=== PATIENT | female | born 1945 | race Caucasian/White ===

== ENCOUNTER 2019-07-28 13:09 | Emergency (ER) | payer OTHER ==
[~2019-07-28] VITALS: Ht 180.3 cm; Wt 102.1 kg
[2019-07-28 13:09] VITALS: BP_SYST 127
[2019-07-28] MEDS ORDERED: CARV12.548 PO (13:24)
[2019-07-28] MEDS ORDERED: ASPI-524 PO (13:24)
[2019-07-28] MEDS ORDERED: POTA10CA68 PO (13:24)
[2019-07-28] MEDS ORDERED: METH5TAB70 PO (13:24)
[2019-07-28] MEDS ORDERED: GABA-529 PO (13:24)
[2019-07-28] MEDS ORDERED: CYAN250010 PO (13:24)
[2019-07-28] MEDS ORDERED: HYDR-4274 PO (13:24)
[2019-07-28] MEDS ORDERED: SIMV20TA2 PO (13:24)
[2019-07-28] MEDS ORDERED: TRIA1CAP2 PO (13:24)
[2019-07-28] MEDS ORDERED: CALC600T2 PO (13:24)
[2019-07-28] MEDS ORDERED: MULT-1159 PO (13:24)
[2019-07-28] MEDS ORDERED: BACITRACIN 1 GM OINT TP ONE (14:00)
[2019-07-28] MEDS ORDERED: LIDOCAINE 1% 10 MG/ML, 20 ML MDV SUBCUT ONE (14:00)
[2019-07-28] MEDS ORDERED: DIPH-TET-PERTUS Vaccine 0.5 ML VIAL (ADACEL) I.M. ONE (14:00)
[2019-07-28 14:57] VITALS: BP_SYST 127
== END 2019-07-28 14:57 | disposition home or self-care (01) ==
LOC: SED 13:09
DX: S81.812A Laceration without foreign body, left lower leg, initial encounter (principal); Z79.899 Other long term (current) drug therapy; Z79.82 Long term (current) use of aspirin; W22.8XXA Striking against or struck by other objects, initial encounter; Y93.89 Activity, other specified; Y92.89 Other specified places as the place of occurrence of the external cause; Y99.8 Other external cause status
CPT/HCPCS: 12001; 90471; 90715; 99283; J2001

== ENCOUNTER 2019-08-08 11:18 | Inpatient (IN) | payer OTHER ==
[~2019-08-08] VITALS: Ht 180.3 cm; Wt 88.0 kg
[~2019-08-08 11:18] MED LIST: ASPI-524 PO; CALC600T2 PO; CARV12.548 PO; CYAN250010 PO; GABA-529 PO; HYDR-4274 PO; METH5TAB70 PO; MULT-1159 PO; POTA10CA68 PO; SIMV20TA2 PO; TRIA1CAP2 PO
[2019-08-08 11:25] VITALS: BP_SYST 114
[2019-08-08] MEDS ORDERED: DILTIAZEM HCL 25 MG/5 ML VIAL IVP ONE ×3 (12:00→18:15)
[2019-08-08 12:19] LABS: BASOPHILS # (AUTO) 0.1 K/uL (0.0-0.2); BASOPHILS % (AUTO) 0.5 % (0.0-2.0); EOSINOPHILS % (AUTO) 0.2 % (0.0-4.0); HEMATOCRIT 37.1 % (36-48); HEMOGLOBIN 12.1 g/dL (12.0-16.0); LYMPHOCYTES # (AUTO) 1.1 K/uL (1.0-5.5); LYMPHOCYTES % (AUTO) 9.6 % (20.5-51.5); MEAN CORPUSCULAR HEMOGLOBIN 29 pg (27-31); MEAN CORPUSCULAR HGB CONC 33 % (32-36); MEAN CORPUSCULAR VOLUME 89 fL (79.0-98.0); MONOCYTES # (AUTO) 0.8 K/uL (0.0-1.0); MONOCYTES % (AUTO) 6.7 % (1.7-9.3); NEUTROPHILS # (AUTO) 9.4 K/uL (1.8-7.7); PLATELET COUNT (AUTO) 567 K/uL (130-430); RED BLOOD CELL COUNT(AUTO) 4.18 MIL/uL (4.2-6.2); WHITE BLOOD COUNT (AUTO) 11.4 K/uL (4.8-10.8)
[2019-08-08 12:55] LABS: ALANINE AMINOTRANSFERASE 18 U/L (12-78); ALBUMIN 3.3 g/dL (3.4-4.8); ASPARTATE AMINOTRANSFERASE 14 U/L (10-37); FREE T4 (FREE THYROXINE) 1.8 ng/dL (0.6-1.6); THYROID STIMULATING HORMONE 0.13 uIu/mL (0.34-4.82); TOTAL BILIRUBIN 0.5 mg/dL (0.0-1.0)
[2019-08-08 13:04] LABS: ANION GAP 16 (5-15); CHLORIDE 89 mmol/L (98-107); POTASSIUM 3.2 mmol/L (3.5-5.1); SODIUM SERUM 129 mmol/L (136-145)
[2019-08-08 13:05] LABS: GLUCOSE 136 mg/dL (70-99)
[2019-08-08 13:43] LABS: CALCIUM 8.9 mg/dL (8.4-11.0); UREA NITROGEN, BLOOD 18 mg/dL (8-21)
[2019-08-08 13:44] LABS: CREATININE 1.28 mg/dL (0.55-1.30)
[2019-08-08 13:45] LABS: BILIRUBIN,URINE 2+ (NEGATIVE); BLOOD, URINE 3+ (NEGATIVE); CLARITY/URINE SL CLOUDY (CLEAR); COLOR,URINE YELLOW (YELLOW); GLUCOSE,URINE NEGATIVE (NEGATIVE); KETONES,URINE 1+ (NEGATIVE); LEUKOCYTE ESTERASE ,URINE 2+ (NEGATIVE); NITRITE, URINE NEGATIVE (NEGATIVE); PROTEIN URINE 1+ (NEGATIVE)
[2019-08-08 13:53] LABS: BACTERIA,URINE MODERATE /HPF (None Seen)
[2019-08-08] MEDS ORDERED: DILTIAZEM HCL 120 MG CAP.SR.24H PO ONE (14:15)
[2019-08-08] MEDS ORDERED: LEVOFLOXACIN 500 MG/D5W 100 ML IV ONE (14:15)
[2019-08-08] MEDS ORDERED: ASPIRIN 81 MG TAB.CHEW PO ONE (14:30)
[2019-08-08] MEDS ORDERED: DILTIAZEM HCL 60 MG TABLET ONE (15:27)
[2019-08-08] MEDS ORDERED: MORPHINE SULFATE 10 MG/ML VIAL IVP PRN (16:45)
[2019-08-08] MEDS ORDERED: LORazepam 2 MG/ML VIAL IVP PRN (16:45)
[2019-08-08] MEDS ORDERED: DOCUSATE SODIUM 100 MG CAPSULE PO PRN (16:45)
[2019-08-08] MEDS ORDERED: ONDANSETRON HCL 4 MG/2 ML VIAL IVP PRN (16:45)
[2019-08-08] MEDS ORDERED: ZOLPIDEM TARTRATE 5 MG TABLET PO PRN (16:45)
[2019-08-08] MEDS ORDERED: MUPIROCIN 2% TOPICAL OINTMENT 22 GM NS PRN (16:45)
[2019-08-08] MEDS ORDERED: MAGNESIUM SULFATE 50 ML IV PRN (16:45)
[2019-08-08 20:28] VITALS: BP_SYST 98
[2019-08-08] MEDS: SIMVASTATIN 20 MG TABLET PO SCH (21:39)
[2019-08-08] MEDS: GABAPENTIN 100 MG CAPSULE PO SCH (21:39)
[2019-08-08] MEDS: NACL 0.9% 1,000 ML IV SCH (21:41)
[2019-08-08] MEDS: cefTRIAXone 1 GM in D5W 50 ML IV SCH (21:41)
[2019-08-08] MEDS: HEPARIN SODIUM,PORCINE 5000 UNITS/ML VIAL SUBCUT SCH (21:57)
[2019-08-09] VITALS (7 sets, daily range): BP systolic 77–121
[2019-08-09] MEDS ORDERED: AMIODARONE HCL 200 MG TABLET PO ONE (01:00)
[2019-08-09] MEDS: CARVEDILOL 12.5 MG TABLET (COREG) PO SCH ×3 (01:07→20:36)
[2019-08-09] MEDS ORDERED: NS 250 ML IV ONE (02:15)
[2019-08-09 06:12] LABS: ANION GAP 7 (5-15); CALCIUM 7.9 mg/dL (8.4-11.0); CHLORIDE 94 mmol/L (98-107); CREATININE 0.96 mg/dL (0.55-1.30); GLUCOSE 122 mg/dL (70-99); POTASSIUM 3.2 mmol/L (3.5-5.1); SODIUM SERUM 131 mmol/L (136-145); UREA NITROGEN, BLOOD 20 mg/dL (8-21)
[2019-08-09 06:23] LABS: BASOPHILS % (AUTO) 0.5 % (0.0-2.0); EOSINOPHILS % (AUTO) 0.2 % (0.0-4.0); HEMATOCRIT 31.1 % (36-48); HEMOGLOBIN 10.4 g/dL (12.0-16.0); LYMPHOCYTES # (AUTO) 1.5 K/uL (1.0-5.5); MEAN CORPUSCULAR HEMOGLOBIN 29 pg (27-31); MEAN CORPUSCULAR HGB CONC 33 % (32-36); MEAN CORPUSCULAR VOLUME 88 fL (79.0-98.0); MONOCYTES % (AUTO) 10.8 % (1.7-9.3); NEUTROPHILS # (AUTO) 6.3 K/uL (1.8-7.7); NEUTROPHILS % (AUTO) 71.5 % (40.0-70.0); PLATELET COUNT (AUTO) 414 K/uL (130-430); RED BLOOD CELL COUNT(AUTO) 3.53 MIL/uL (4.2-6.2); RED CELL DISTRIBUTION WIDTH 13.8 % (9.0-15.0); WHITE BLOOD COUNT (AUTO) 8.8 K/uL (4.8-10.8)
[2019-08-09] MEDS: POTASSIUM CHLORIDE 20 MEQ TAB.PRT.SR PO PRN ×2 (06:51→22:30)
[2019-08-09] MEDS ORDERED: TRIAMTERENE/HYDROCHLOROTHIAZID 1 CAP CAPSULE (DYAZIDE37.5/25) PO SCH (09:00)
[2019-08-09] MEDS: GABAPENTIN 100 MG CAPSULE PO SCH ×2 (09:17→20:36)
[2019-08-09] MEDS: ASPIRIN 81 MG TAB.CHEW PO SCH (09:18)
[2019-08-09] MEDS: HEPARIN SODIUM,PORCINE 5000 UNITS/ML VIAL SUBCUT SCH (09:22)
[2019-08-09] MEDS: MORPHINE SULFATE 10 MG/ML VIAL IVP PRN ×2 (09:27→14:59)
[2019-08-09] MEDS ORDERED: APIXABAN 2.5 MG TABLET PO ONE (10:00)
[2019-08-09] MEDS: METHIMAZOLE 5 MG TABLET PO SCH (12:20)
[2019-08-09] MEDS: NACL 0.9% 1,000 ML IV SCH ×2 (12:32→16:17)
[2019-08-09] MEDS: cefTRIAXone 1 GM in D5W 50 ML IV SCH (20:35)
[2019-08-09] MEDS: SIMVASTATIN 20 MG TABLET PO SCH (20:36)
[2019-08-09] MEDS: APIXABAN 2.5 MG TABLET PO SCH (20:37)
[2019-08-09] MEDS: ACETAMINOPHEN 325 MG TABLET PO PRN (22:34)
[2019-08-10] MEDS: NACL 0.9% 1,000 ML IV SCH ×4 (00:17→20:51)
[2019-08-10 00:50] VITALS: BP_SYST 100
[2019-08-10] MEDS: ACETAMINOPHEN 325 MG TABLET PO PRN ×4 (03:33→20:54)
[2019-08-10 04:00] VITALS: BP_SYST 104
[2019-08-10 07:35] LABS: ALANINE AMINOTRANSFERASE 16 U/L (12-78); ALBUMIN 2.8 g/dL (3.4-4.8); ANION GAP 8 (5-15); ASPARTATE AMINOTRANSFERASE 18 U/L (10-37); CALCIUM 8.3 mg/dL (8.4-11.0); CHLORIDE 96 mmol/L (98-107); CREATININE 0.82 mg/dL (0.55-1.30); GLUCOSE 116 mg/dL (70-99); SODIUM SERUM 131 mmol/L (136-145); TOTAL BILIRUBIN 0.3 mg/dL (0.0-1.0); UREA NITROGEN, BLOOD 15 mg/dL (8-21)
[2019-08-10 07:40] VITALS: BP_SYST 126
[2019-08-10 08:06] LABS: CHOLESTEROL 147 mg/dL (<200); HDL CHOLESTEROL 40 mg/dL (>55); LDL CHOLESTEROL 80 mg/dL (<100); TRIGLYCERIDES 116 mg/dL (30-150)
[2019-08-10 08:09] LABS: BASOPHILS % (AUTO) 0.6 % (0.0-2.0); EOSINOPHILS # (AUTO) 0.1 K/uL (0.0-0.4); EOSINOPHILS % (AUTO) 0.9 % (0.0-4.0); HEMATOCRIT 31.8 % (36-48); HEMOGLOBIN 10.7 g/dL (12.0-16.0); LYMPHOCYTES # (AUTO) 1.9 K/uL (1.0-5.5); LYMPHOCYTES % (AUTO) 26.9 % (20.5-51.5); MEAN CORPUSCULAR HEMOGLOBIN 30 pg (27-31); MEAN CORPUSCULAR HGB CONC 34 % (32-36); MEAN CORPUSCULAR VOLUME 89 fL (79.0-98.0); MONOCYTES # (AUTO) 0.7 K/uL (0.0-1.0); MONOCYTES % (AUTO) 9.9 % (1.7-9.3); NEUTROPHILS # (AUTO) 4.4 K/uL (1.8-7.7); NEUTROPHILS % (AUTO) 61.7 % (40.0-70.0); PLATELET COUNT (AUTO) 396 K/uL (130-430); RED CELL DISTRIBUTION WIDTH 13.7 % (9.0-15.0); WHITE BLOOD COUNT (AUTO) 7.2 K/uL (4.8-10.8)
[2019-08-10] MEDS: METHIMAZOLE 5 MG TABLET PO SCH (08:54)
[2019-08-10] MEDS: ASPIRIN 81 MG TAB.CHEW PO SCH (08:55)
[2019-08-10] MEDS: GABAPENTIN 100 MG CAPSULE PO SCH ×2 (08:55→20:54)
[2019-08-10] MEDS: CARVEDILOL 12.5 MG TABLET (COREG) PO SCH ×2 (08:58→20:53)
[2019-08-10] MEDS: APIXABAN 2.5 MG TABLET PO SCH ×2 (09:25→20:58)
[2019-08-10 12:00] VITALS: BP_SYST 109
[2019-08-10 16:20] VITALS: BP_SYST 122
[2019-08-10] MEDS ORDERED: SUCRALFATE 1 GM TABLET ONE (18:24)
[2019-08-10 20:00] VITALS: BP_SYST 121
[2019-08-10] MEDS: cefTRIAXone 1 GM in D5W 50 ML IV SCH (20:51)
[2019-08-10] MEDS: SIMVASTATIN 20 MG TABLET PO SCH (20:54)
[2019-08-11 01:31] VITALS: BP_SYST 130
[2019-08-11 04:00] VITALS: BP_SYST 128
[2019-08-11 06:57] LABS: BASOPHILS # (AUTO) 0.1 K/uL (0.0-0.2); EOSINOPHILS # (AUTO) 0.2 K/uL (0.0-0.4); EOSINOPHILS % (AUTO) 3.2 % (0.0-4.0); HEMATOCRIT 30.5 % (36-48); LYMPHOCYTES # (AUTO) 1.7 K/uL (1.0-5.5); LYMPHOCYTES % (AUTO) 25.1 % (20.5-51.5); MEAN CORPUSCULAR HEMOGLOBIN 29 pg (27-31); MEAN CORPUSCULAR HGB CONC 33 % (32-36); MEAN CORPUSCULAR VOLUME 89 fL (79.0-98.0); MONOCYTES # (AUTO) 0.8 K/uL (0.0-1.0); MONOCYTES % (AUTO) 11.3 % (1.7-9.3); NEUTROPHILS # (AUTO) 3.9 K/uL (1.8-7.7); NEUTROPHILS % (AUTO) 59.4 % (40.0-70.0); PLATELET COUNT (AUTO) 361 K/uL (130-430); RED BLOOD CELL COUNT(AUTO) 3.43 MIL/uL (4.2-6.2); RED CELL DISTRIBUTION WIDTH 13.9 % (9.0-15.0); WHITE BLOOD COUNT (AUTO) 6.6 K/uL (4.8-10.8)
[2019-08-11 07:19] LABS: ANION GAP 5 (5-15); CHLORIDE 101 mmol/L (98-107); CREATININE 0.92 mg/dL (0.55-1.30); GLUCOSE 108 mg/dL (70-99); POTASSIUM 3.9 mmol/L (3.5-5.1); SODIUM SERUM 136 mmol/L (136-145); UREA NITROGEN, BLOOD 11 mg/dL (8-21)
[2019-08-11] MEDS ORDERED: CARV25TA55 PO (09:01)
[2019-08-11] MEDS ORDERED: APIX5TAB PO (09:01)
[2019-08-11] MEDS: ASPIRIN 81 MG TAB.CHEW PO SCH (09:03)
[2019-08-11] MEDS: CARVEDILOL 12.5 MG TABLET (COREG) PO SCH (09:04)
[2019-08-11] MEDS: GABAPENTIN 100 MG CAPSULE PO SCH (09:11)
[2019-08-11] MEDS: METHIMAZOLE 5 MG TABLET PO SCH (09:25)
[2019-08-11] MEDS: APIXABAN 2.5 MG TABLET PO SCH (09:25)
[2019-08-11 10:19] VITALS: BP_SYST 144
[2019-08-11 11:40] VITALS: BP_SYST 114
== END 2019-08-11 11:31 | disposition home or self-care (01) | DRG 690 ==
LOC: SED 11:18 → EEVIPCON 11:18 → STU 14:17
PROVIDERS: ADMIT General Practice; ATTEND General Practice
DX: N39.0 Urinary tract infection, site not specified (principal); N17.9 Acute kidney failure, unspecified; E87.1 Hypo-osmolality and hyponatremia; E87.3 Alkalosis; I48.20 Chronic atrial fibrillation, unspecified; E87.6 Hypokalemia; B96.20 Unspecified Escherichia coli [E. coli] as the cause of diseases classified elsewhere; E03.9 Hypothyroidism, unspecified; E05.90 Thyrotoxicosis, unspecified without thyrotoxic crisis or storm; E78.5 Hyperlipidemia, unspecified; E86.0 Dehydration; G89.4 Chronic pain syndrome; I10 Essential (primary) hypertension; Z79.899 Other long term (current) drug therapy; Z79.82 Long term (current) use of aspirin
CPT/HCPCS: 36415; 36600; 71045; 80048; 80053; 80061; 81000-TC; 82728; 82803-TC; 83036; 83605; 83735-TC; 83880; 84439; 84443-TC; 84484; 85025; 86140; 87040-TC; 87081; 87086; 87186-TC; 93005; 93306; 96365; 96375; 96376; 99285; G0378; J0696; J1644; J1956; J2270; J3490; J7030; J7050; J7060

== ENCOUNTER 2022-09-11 08:33 | Inpatient (IN) | payer OTHER ==
[~2022-09-11] VITALS: Ht 180.3 cm; Wt 85.7 kg
[~2022-09-11 08:33] MED LIST changes: +APIX5TAB PO; -ASPI-524 PO; -CARV12.548 PO; +CARV25TA55 PO; +SIMV-343 PO; -SIMV20TA2 PO; -TRIA1CAP2 PO
[2022-09-11 08:37] VITALS: BP_SYST 117
[2022-09-11] MEDS ORDERED: METOPROLOL TARTRATE 5 MG/5 ML VIAL IVP ONE ×3 (08:45→09:45)
[2022-09-11] MEDS ORDERED: METOPROLOL SUCCINATE 25 MG TAB.SR.24H (TOPROL XL) PO ONE (09:15)
[2022-09-11] MEDS ORDERED: METOPROLOL SUCCINATE 25 MG TAB.SR.24H (TOPROL XL) PO SCH (09:15)
[2022-09-11] MEDS ORDERED: CARVEDILOL 6.25 MG TABLET (COREG) PO ONE (09:15)
[2022-09-11 09:23] LABS: BASOPHILS # (AUTO) 0.1 K/uL (0.0-0.2); BASOPHILS % (AUTO) 1.1 % (0.0-2.0); EOSINOPHILS # (AUTO) 0.3 K/uL (0.0-0.4); EOSINOPHILS % (AUTO) 3.7 % (0.0-4.0); HEMATOCRIT 30.3 % (36-48); HEMOGLOBIN 9.6 g/dL (12.0-16.0); LYMPHOCYTES # (AUTO) 2.1 K/uL (1.0-5.5); MEAN CORPUSCULAR HEMOGLOBIN 25 pg (27-31); MEAN CORPUSCULAR HGB CONC 32 % (32-36); MEAN CORPUSCULAR VOLUME 79 fL (79.0-98.0); MONOCYTES # (AUTO) 0.6 K/uL (0.0-1.0); MONOCYTES % (AUTO) 7.5 % (1.7-9.3); NEUTROPHILS # (AUTO) 4.8 K/uL (1.8-7.7); NEUTROPHILS % (AUTO) 60.7 % (40.0-70.0); PLATELET COUNT (AUTO) 268 K/uL (130-430); RED BLOOD CELL COUNT(AUTO) 3.86 MIL/uL (4.2-6.2); RED CELL DISTRIBUTION WIDTH 18.5 % (9.0-15.0); WHITE BLOOD COUNT (AUTO) 7.9 K/uL (4.8-10.8)
[2022-09-11] MEDS ORDERED: METOPROLOL TARTRATE 25 MG TABLET ONE (09:25)
[2022-09-11 09:37] LABS: ANION GAP 10 (5-15); CALCIUM 8.2 mg/dL (8.4-11.0); CHLORIDE 107 mmol/L (98-107); CREATININE 0.98 mg/dL (0.55-1.30); GLUCOSE 118 mg/dL (70-99); UREA NITROGEN, BLOOD 50 mg/dL (8-21)
[2022-09-11 09:39] LABS: INR 1.2 (0.8-1.2); PROTHROMBIN TIME 12.7 SECS (9.5-12.5)
[2022-09-11 09:44] LABS: ALANINE AMINOTRANSFERASE 13 U/L (12-78); ALBUMIN 3.5 g/dL (3.4-4.8); ASPARTATE AMINOTRANSFERASE 11 U/L (10-37); TOTAL BILIRUBIN 0.7 mg/dL (0.0-1.0)
[2022-09-11] MEDS ORDERED: NACL 0.9% 1,000 ML IV ONE (10:00)
[2022-09-11] MEDS ORDERED: dilTIAZem HCL IVP 5 MG/ML VIAL IVP ONE (10:00)
[2022-09-11] MEDS ORDERED: NALOXONE HCL 0.4 MG/ML AMP (NARCAN) IVP PRN ×2 (13:00)
[2022-09-11] MEDS ORDERED: LORazepam 2 MG/ML VIAL IVP PRN (13:00)
[2022-09-11] MEDS ORDERED: ACETAMINOPHEN 325 MG TABLET PO PRN ×2 (13:00→13:30)
[2022-09-11] MEDS ORDERED: HYDROcodone/ACETAMIN 10-325 MG TAB PO PRN (13:00)
[2022-09-11] MEDS ORDERED: HYDROcodone/ACETAMIN 5-325 MG TAB (NORCO/ VICODIN) PO PRN (13:00)
[2022-09-11] MEDS: NORMAL SALINE 5 ML DISP.SYRIN IVF SCH ×2 (15:19→23:40)
[2022-09-11 18:07] VITALS: BP_SYST 114
[2022-09-11 20:00] VITALS: BP_SYST 124
[2022-09-11] MEDS: GABAPENTIN 100 MG CAPSULE PO SCH (20:24)
[2022-09-11] MEDS: SIMVASTATIN 20 MG TABLET PO SCH (20:25)
[2022-09-11] MEDS: CARVEDILOL 25 MG TABLET (COREG) PO SCH (20:26)
[2022-09-11 20:34] VITALS: BP_SYST 124
[2022-09-11] MEDS: ONDANSETRON HCL 4 MG/2 ML VIAL IVP PRN (20:54)
[2022-09-11] MEDS ORDERED: NON-FORMULARY MEDICATION (Apixaban (Eliquis) 5 MG) PO SCH (21:00)
[2022-09-11] MEDS ORDERED: APIXABAN 2.5 MG TABLET PO SCH (21:00)
[2022-09-11] MEDS: dilTIAZem HCL IVP 5 MG/ML VIAL IVP PRN (21:26)
[2022-09-12] VITALS (15 sets, daily range): BP systolic 86–171
[2022-09-12] MEDS ORDERED: dilTIAZem HCL IVP 5 MG/ML VIAL IVP ONE ×2 (00:45→13:00)
[2022-09-12] MEDS: DILTIAZEM HCL 60 MG TABLET PO SCH ×5 (00:54→23:14)
[2022-09-12 06:09] LABS: ALANINE AMINOTRANSFERASE 9 U/L (12-78); ALBUMIN 2.7 g/dL (3.4-4.8); ANION GAP 8 (5-15); ASPARTATE AMINOTRANSFERASE 8 U/L (10-37); CALCIUM 7.7 mg/dL (8.4-11.0); CHLORIDE 110 mmol/L (98-107); CREATININE 0.99 mg/dL (0.55-1.30); GLUCOSE 117 mg/dL (70-99); PHOSPHORUS 3.2 mg/dL (2.7-4.5); TOTAL BILIRUBIN 0.4 mg/dL (0.0-1.0); UREA NITROGEN, BLOOD 63 mg/dL (8-21)
[2022-09-12] MEDS: D5/0.45 NS 1,000 ML IV SCH ×2 (06:15→16:15)
[2022-09-12 06:20] LABS: BASOPHILS # (AUTO) 0.1 K/uL (0.0-0.2); BASOPHILS % (AUTO) 1.2 % (0.0-2.0); EOSINOPHILS # (AUTO) 0.2 K/uL (0.0-0.4); EOSINOPHILS % (AUTO) 2.9 % (0.0-4.0); LYMPHOCYTES # (AUTO) 2.7 K/uL (1.0-5.5); LYMPHOCYTES % (AUTO) 32.7 % (20.5-51.5); MEAN CORPUSCULAR HEMOGLOBIN 25 pg (27-31); MEAN CORPUSCULAR HGB CONC 32 % (32-36); MEAN CORPUSCULAR VOLUME 80 fL (79.0-98.0); MONOCYTES # (AUTO) 0.6 K/uL (0.0-1.0); MONOCYTES % (AUTO) 6.9 % (1.7-9.3); NEUTROPHILS # (AUTO) 4.7 K/uL (1.8-7.7); NEUTROPHILS % (AUTO) 56.3 % (40.0-70.0); PLATELET COUNT (AUTO) 197 K/uL (130-430); RED BLOOD CELL COUNT(AUTO) 2.07 MIL/uL (4.2-6.2); RED CELL DISTRIBUTION WIDTH 18.3 % (9.0-15.0); WHITE BLOOD COUNT (AUTO) 8.4 K/uL (4.8-10.8)
[2022-09-12 06:25] LABS: HEMATOCRIT 16.5 % (36-48); HEMOGLOBIN 5.2 g/dL (12.0-16.0)
[2022-09-12] MEDS: ONDANSETRON HCL 4 MG/2 ML VIAL IVP PRN ×3 (06:31→13:53)
[2022-09-12] MEDS: NORMAL SALINE 5 ML DISP.SYRIN IVF SCH ×3 (06:32→20:26)
[2022-09-12] MEDS: GABAPENTIN 100 MG CAPSULE PO SCH ×2 (09:00→20:25)
[2022-09-12] MEDS: POTASSIUM CHLORIDE 10 MEQ TAB.PRT.SR PO SCH (09:00)
[2022-09-12] MEDS: MULTIVITS,CA,MINERALS/IRON/FA 1 TABLET PO SCH (09:00)
[2022-09-12] MEDS: CARVEDILOL 25 MG TABLET (COREG) PO SCH ×2 (09:00→20:25)
[2022-09-12] MEDS: methIMAzole 5 MG TABLET PO SCH (09:00)
[2022-09-12] MEDS ORDERED: POTASSIUM CHLORIDE PO SCH (09:00)
[2022-09-12] MEDS ORDERED: CYANOCOBALAMIN 1500 MCG PO SCH (09:00)
[2022-09-12] MEDS ORDERED: CALCIUM CARBONATE PO SCH (09:00)
[2022-09-12] MEDS: CALCIUM 500 MG/TAB PO SCH (09:00)
[2022-09-12] MEDS: CYANOCOBALAMIN (VITAMIN B-12) 1,000 MCG TABLET PO SCH (09:00)
[2022-09-12] MEDS: PANTOPRAZOLE SODIUM 40 MG/VIAL (PROTONIX) IVP SCH ×2 (09:43→20:23)
[2022-09-12] MEDS ORDERED: NACL 0.9% 1,000 ML IV ONE (10:00)
[2022-09-12] MEDS: dilTIAZem HCL IVP 5 MG/ML VIAL IVP PRN (11:42)
[2022-09-12] MEDS ORDERED: dilTIAZem HCL IVP 5 MG/ML VIAL ONE (12:53)
[2022-09-12] MEDS ORDERED: CALCIUM GLUCONATE 2 GM in NS 100 ML IV ONE (13:00)
[2022-09-12] MEDS: AMIODARONE HCL 450 MG in D5W 241 ML IV SCH (14:00)
[2022-09-12] MEDS ORDERED: AMIODARONE HCL 150 MG in D5W 100 ML IV ONE (14:00)
[2022-09-12] MEDS: SIMVASTATIN 20 MG TABLET PO SCH (20:26)
[2022-09-13] VITALS (30 sets, daily range): BP systolic 90–140
[2022-09-13] MEDS ORDERED: AMIODARONE HCL 450 MG/9 ML VIAL IV ONE ×2 (00:50→08:33)
[2022-09-13] MEDS: D5/0.45 NS 1,000 ML IV SCH ×4 (05:36→23:09)
[2022-09-13] MEDS: DILTIAZEM HCL 60 MG TABLET PO SCH ×4 (05:46→23:28)
[2022-09-13] MEDS: NORMAL SALINE 5 ML DISP.SYRIN IVF SCH ×3 (05:48→21:33)
[2022-09-13] MEDS ORDERED: MEPERIDINE 50 MG/ML VIAL ONE (06:18)
[2022-09-13] MEDS ORDERED: MIDAZOLAM HCL 5 MG/5 ML VIAL ONE (06:18)
[2022-09-13] MEDS ORDERED: SIMETHICONE 40 MG/0.6 ML ML ONE (06:18)
[2022-09-13 07:05] LABS: ALANINE AMINOTRANSFERASE 9 U/L (12-78); ALBUMIN 2.8 g/dL (3.4-4.8); ANION GAP 11 (5-15); ASPARTATE AMINOTRANSFERASE 14 U/L (10-37); CALCIUM 7.8 mg/dL (8.4-11.0); CHLORIDE 109 mmol/L (98-107); CREATININE 1.05 mg/dL (0.55-1.30); FREE T4 (FREE THYROXINE) 0.8 ng/dL (0.6-1.6); GLUCOSE 184 mg/dL (70-99); LIPASE 112 U/L (73-393); THYROID STIMULATING HORMONE 20.15 uIu/mL (0.34-4.82); TOTAL BILIRUBIN 0.8 mg/dL (0.0-1.0); UREA NITROGEN, BLOOD 50 mg/dL (8-21)
[2022-09-13 07:30] LABS: INR 1.1 (0.8-1.2); PROTHROMBIN TIME 10.7 SECS (9.5-12.5)
[2022-09-13 07:40] LABS: BASOPHILS # (AUTO) 0.1 K/uL (0.0-0.2); BASOPHILS % (AUTO) 0.5 % (0.0-2.0); EOSINOPHILS % (AUTO) 0.1 % (0.0-4.0); LYMPHOCYTES # (AUTO) 1.9 K/uL (1.0-5.5); LYMPHOCYTES % (AUTO) 18.3 % (20.5-51.5); MEAN CORPUSCULAR HEMOGLOBIN 27 pg (27-31); MEAN CORPUSCULAR HGB CONC 33 % (32-36); MEAN CORPUSCULAR VOLUME 82 fL (79.0-98.0); MONOCYTES # (AUTO) 0.5 K/uL (0.0-1.0); MONOCYTES % (AUTO) 4.8 % (1.7-9.3); NEUTROPHILS # (AUTO) 8.1 K/uL (1.8-7.7); NEUTROPHILS % (AUTO) 76.3 % (40.0-70.0); PLATELET COUNT (AUTO) 181 K/uL (130-430); RED CELL DISTRIBUTION WIDTH 17.4 % (9.0-15.0); WHITE BLOOD COUNT (AUTO) 10.6 K/uL (4.8-10.8)
[2022-09-13] MEDS: AMIODARONE HCL 450 MG in D5W 241 ML IV SCH ×2 (08:00→17:17)
[2022-09-13 08:01] LABS: HEMATOCRIT 21.3 % (36-48)
[2022-09-13] MEDS: CARVEDILOL 25 MG TABLET (COREG) PO SCH ×2 (09:03→20:25)
[2022-09-13] MEDS: PANTOPRAZOLE SODIUM 40 MG/VIAL (PROTONIX) IVP SCH ×2 (09:03→20:24)
[2022-09-13] MEDS: POTASSIUM CHLORIDE 10 MEQ TAB.PRT.SR PO SCH (09:05)
[2022-09-13] MEDS: GABAPENTIN 100 MG CAPSULE PO SCH ×2 (09:06→20:25)
[2022-09-13] MEDS: methIMAzole 5 MG TABLET PO SCH (09:06)
[2022-09-13] MEDS: CALCIUM 500 MG/TAB PO SCH (09:06)
[2022-09-13] MEDS: MULTIVITS,CA,MINERALS/IRON/FA 1 TABLET PO SCH (09:09)
[2022-09-13] MEDS: CYANOCOBALAMIN (VITAMIN B-12) 1,000 MCG TABLET PO SCH (09:10)
[2022-09-13] MEDS ORDERED: NOREPINEPHRINE BITARTRATE 32 MG in D5W 218 ML IV PRN (09:15)
[2022-09-13] MEDS ORDERED: CALCIUM GLUCONATE 2 GM in NS 100 ML IV ONE (09:45)
[2022-09-13] MEDS ORDERED: NOREPINEPHRINE BITARTRATE 32 MG in NS 218 ML IV PRN (13:00)
[2022-09-13] MEDS: ONDANSETRON HCL 4 MG/2 ML VIAL IVP PRN ×2 (15:01→21:17)
[2022-09-13] MEDS: SIMVASTATIN 20 MG TABLET PO SCH (20:25)
[2022-09-14] VITALS (24 sets, daily range): BP systolic 110–168
[2022-09-14] MEDS: NORMAL SALINE 5 ML DISP.SYRIN IVF SCH ×3 (05:40→21:00)
[2022-09-14] MEDS: DILTIAZEM HCL 60 MG TABLET PO SCH ×3 (05:41→17:54)
[2022-09-14] MEDS: ONDANSETRON HCL 4 MG/2 ML VIAL IVP PRN ×2 (05:46→09:13)
[2022-09-14 06:04] LABS: BASOPHILS # (AUTO) 0.1 K/uL (0.0-0.2); BASOPHILS % (AUTO) 0.6 % (0.0-2.0); EOSINOPHILS # (AUTO) 0.1 K/uL (0.0-0.4); EOSINOPHILS % (AUTO) 1.1 % (0.0-4.0); LYMPHOCYTES # (AUTO) 2.1 K/uL (1.0-5.5); LYMPHOCYTES % (AUTO) 18.9 % (20.5-51.5); MEAN CORPUSCULAR HEMOGLOBIN 26 pg (27-31); MEAN CORPUSCULAR HGB CONC 32 % (32-36); MEAN CORPUSCULAR VOLUME 83 fL (79.0-98.0); MONOCYTES # (AUTO) 0.6 K/uL (0.0-1.0); MONOCYTES % (AUTO) 5.5 % (1.7-9.3); NEUTROPHILS # (AUTO) 8.4 K/uL (1.8-7.7); NEUTROPHILS % (AUTO) 73.9 % (40.0-70.0); PLATELET COUNT (AUTO) 192 K/uL (130-430); RED BLOOD CELL COUNT(AUTO) 2.54 MIL/uL (4.2-6.2); RED CELL DISTRIBUTION WIDTH 17.8 % (9.0-15.0); WHITE BLOOD COUNT (AUTO) 11.3 K/uL (4.8-10.8)
[2022-09-14 06:33] LABS: ALANINE AMINOTRANSFERASE 8 U/L (12-78); ALBUMIN 2.8 g/dL (3.4-4.8); ANION GAP 11 (5-15); ASPARTATE AMINOTRANSFERASE 11 U/L (10-37); CHLORIDE 105 mmol/L (98-107); GLUCOSE 155 mg/dL (70-99); TOTAL BILIRUBIN 0.4 mg/dL (0.0-1.0); UREA NITROGEN, BLOOD 30 mg/dL (8-21)
[2022-09-14 08:14] LABS: HEMATOCRIT 21.1 % (36-48); HEMOGLOBIN 6.6 g/dL (12.0-16.0)
[2022-09-14] MEDS ORDERED: DIATR MEGLU/DIATRIZ SOD 30 ML SOLUTION PO ONE (08:29)
[2022-09-14 08:43] LABS: BASOPHILS # (AUTO) 0.2 K/uL (0.0-0.2); BASOPHILS % (AUTO) 1.7 % (0.0-2.0); EOSINOPHILS # (AUTO) 0.2 K/uL (0.0-0.4); EOSINOPHILS % (AUTO) 2.3 % (0.0-4.0); LYMPHOCYTES # (AUTO) 1.6 K/uL (1.0-5.5); LYMPHOCYTES % (AUTO) 14.6 % (20.5-51.5); MEAN CORPUSCULAR HEMOGLOBIN 27 pg (27-31); MEAN CORPUSCULAR HGB CONC 32 % (32-36); MEAN CORPUSCULAR VOLUME 83 fL (79.0-98.0); MONOCYTES # (AUTO) 0.7 K/uL (0.0-1.0); MONOCYTES % (AUTO) 6.3 % (1.7-9.3); NEUTROPHILS # (AUTO) 8.1 K/uL (1.8-7.7); NEUTROPHILS % (AUTO) 75.1 % (40.0-70.0); PLATELET COUNT (AUTO) 192 K/uL (130-430); RED BLOOD CELL COUNT(AUTO) 2.54 MIL/uL (4.2-6.2); RED CELL DISTRIBUTION WIDTH 17.5 % (9.0-15.0); WHITE BLOOD COUNT (AUTO) 10.7 K/uL (4.8-10.8)
[2022-09-14] MEDS: PANTOPRAZOLE SODIUM 40 MG/VIAL (PROTONIX) IVP SCH ×2 (08:47→20:56)
[2022-09-14] MEDS: CARVEDILOL 25 MG TABLET (COREG) PO SCH ×2 (08:48→20:58)
[2022-09-14] MEDS: GABAPENTIN 100 MG CAPSULE PO SCH ×2 (08:48→20:58)
[2022-09-14] MEDS: AMIODARONE HCL 200 MG TABLET PO SCH ×2 (08:48→20:57)
[2022-09-14] MEDS: POTASSIUM CHLORIDE 10 MEQ TAB.PRT.SR PO SCH (08:48)
[2022-09-14] MEDS: CALCIUM 500 MG/TAB PO SCH (08:49)
[2022-09-14] MEDS: MULTIVITS,CA,MINERALS/IRON/FA 1 TABLET PO SCH (08:49)
[2022-09-14] MEDS: CYANOCOBALAMIN (VITAMIN B-12) 1,000 MCG TABLET PO SCH (08:49)
[2022-09-14] MEDS: methIMAzole 5 MG TABLET PO SCH ×2 (08:49→22:00)
[2022-09-14 08:52] LABS: HEMATOCRIT 21.2 % (36-48); HEMOGLOBIN 6.9 g/dL (12.0-16.0)
[2022-09-14] MEDS: D5/0.45 NS 1,000 ML IV SCH (10:37)
[2022-09-14] MEDS: SIMVASTATIN 20 MG TABLET PO SCH (20:59)
[2022-09-14 23:15] LABS: BASOPHILS # (AUTO) 0.1 K/uL (0.0-0.2); BASOPHILS % (AUTO) 0.8 % (0.0-2.0); EOSINOPHILS # (AUTO) 0.3 K/uL (0.0-0.4); EOSINOPHILS % (AUTO) 2.3 % (0.0-4.0); HEMATOCRIT 27.4 % (36-48); HEMOGLOBIN 9.2 g/dL (12.0-16.0); LYMPHOCYTES # (AUTO) 2.8 K/uL (1.0-5.5); LYMPHOCYTES % (AUTO) 23.5 % (20.5-51.5); MEAN CORPUSCULAR HEMOGLOBIN 28 pg (27-31); MEAN CORPUSCULAR HGB CONC 34 % (32-36); MEAN CORPUSCULAR VOLUME 84 fL (79.0-98.0); MONOCYTES # (AUTO) 0.9 K/uL (0.0-1.0); MONOCYTES % (AUTO) 7.3 % (1.7-9.3); NEUTROPHILS # (AUTO) 7.9 K/uL (1.8-7.7); NEUTROPHILS % (AUTO) 66.1 % (40.0-70.0); PLATELET COUNT (AUTO) 181 K/uL (130-430); RED BLOOD CELL COUNT(AUTO) 3.28 MIL/uL (4.2-6.2); RED CELL DISTRIBUTION WIDTH 16.6 % (9.0-15.0)
[2022-09-15 00:26] VITALS: BP_SYST 135
[2022-09-15] MEDS: D5/0.45 NS 1,000 ML IV SCH ×2 (05:44→11:04)
[2022-09-15 05:45] VITALS: BP_SYST 127
[2022-09-15] MEDS ORDERED: methIMAzole 5 MG TABLET ONE ×2 (05:53→05:55)
[2022-09-15] MEDS: methIMAzole 5 MG TABLET PO SCH (05:58)
[2022-09-15] MEDS: NORMAL SALINE 5 ML DISP.SYRIN IVF SCH ×3 (05:58→21:46)
[2022-09-15] MEDS: DILTIAZEM HCL 60 MG TABLET PO SCH ×4 (05:59→17:06)
[2022-09-15 06:21] LABS: BASOPHILS # (AUTO) 0.1 K/uL (0.0-0.2); BASOPHILS % (AUTO) 0.7 % (0.0-2.0); EOSINOPHILS # (AUTO) 0.3 K/uL (0.0-0.4); EOSINOPHILS % (AUTO) 3.4 % (0.0-4.0); HEMATOCRIT 27.4 % (36-48); HEMOGLOBIN 9.2 g/dL (12.0-16.0); LYMPHOCYTES # (AUTO) 2.4 K/uL (1.0-5.5); LYMPHOCYTES % (AUTO) 24.6 % (20.5-51.5); MEAN CORPUSCULAR HEMOGLOBIN 28 pg (27-31); MEAN CORPUSCULAR HGB CONC 34 % (32-36); MEAN CORPUSCULAR VOLUME 84 fL (79.0-98.0); MONOCYTES # (AUTO) 0.8 K/uL (0.0-1.0); MONOCYTES % (AUTO) 7.9 % (1.7-9.3); NEUTROPHILS # (AUTO) 6.3 K/uL (1.8-7.7); NEUTROPHILS % (AUTO) 63.4 % (40.0-70.0); PLATELET COUNT (AUTO) 167 K/uL (130-430); RED BLOOD CELL COUNT(AUTO) 3.27 MIL/uL (4.2-6.2); RED CELL DISTRIBUTION WIDTH 16.2 % (9.0-15.0); WHITE BLOOD COUNT (AUTO) 9.8 K/uL (4.8-10.8)
[2022-09-15 06:32] LABS: PROTHROMBIN TIME 10.3 SECS (9.5-12.5)
[2022-09-15 06:53] LABS: ALANINE AMINOTRANSFERASE 7 U/L (12-78); ALBUMIN 2.7 g/dL (3.4-4.8); ANION GAP 10 (5-15); ASPARTATE AMINOTRANSFERASE 15 U/L (10-37); CALCIUM 7.7 mg/dL (8.4-11.0); CHLORIDE 106 mmol/L (98-107); CREATININE 0.88 mg/dL (0.55-1.30); GLUCOSE 114 mg/dL (70-99); TOTAL BILIRUBIN 0.7 mg/dL (0.0-1.0); UREA NITROGEN, BLOOD 15 mg/dL (8-21)
[2022-09-15 07:48] VITALS: BP_SYST 122
[2022-09-15] MEDS: CYANOCOBALAMIN (VITAMIN B-12) 1,000 MCG TABLET PO SCH (08:32)
[2022-09-15] MEDS: PANTOPRAZOLE SODIUM 40 MG/VIAL (PROTONIX) IVP SCH ×2 (08:32→22:18)
[2022-09-15] MEDS: AMIODARONE HCL 200 MG TABLET PO SCH (08:33)
[2022-09-15] MEDS: CALCIUM 500 MG/TAB PO SCH (08:33)
[2022-09-15] MEDS: POTASSIUM CHLORIDE 10 MEQ TAB.PRT.SR PO SCH (08:33)
[2022-09-15] MEDS: GABAPENTIN 100 MG CAPSULE PO SCH ×2 (08:33→21:45)
[2022-09-15] MEDS: MULTIVITS,CA,MINERALS/IRON/FA 1 TABLET PO SCH (08:34)
[2022-09-15] MEDS: CARVEDILOL 25 MG TABLET (COREG) PO SCH ×2 (08:34→21:46)
[2022-09-15 09:00] LABS: BASOPHILS # (AUTO) 0.1 K/uL (0.0-0.2); BASOPHILS % (AUTO) 0.5 % (0.0-2.0); EOSINOPHILS # (AUTO) 0.3 K/uL (0.0-0.4); EOSINOPHILS % (AUTO) 3.3 % (0.0-4.0); HEMATOCRIT 29.6 % (36-48); HEMOGLOBIN 9.7 g/dL (12.0-16.0); LYMPHOCYTES # (AUTO) 1.9 K/uL (1.0-5.5); LYMPHOCYTES % (AUTO) 18.5 % (20.5-51.5); MEAN CORPUSCULAR HEMOGLOBIN 28 pg (27-31); MEAN CORPUSCULAR HGB CONC 33 % (32-36); MEAN CORPUSCULAR VOLUME 85 fL (79.0-98.0); MONOCYTES # (AUTO) 0.7 K/uL (0.0-1.0); MONOCYTES % (AUTO) 6.6 % (1.7-9.3); NEUTROPHILS # (AUTO) 7.2 K/uL (1.8-7.7); NEUTROPHILS % (AUTO) 71.1 % (40.0-70.0); PLATELET COUNT (AUTO) 188 K/uL (130-430); RED BLOOD CELL COUNT(AUTO) 3.48 MIL/uL (4.2-6.2); RED CELL DISTRIBUTION WIDTH 16.5 % (9.0-15.0); WHITE BLOOD COUNT (AUTO) 10.1 K/uL (4.8-10.8)
[2022-09-15 11:34] VITALS: BP_SYST 113
[2022-09-15 18:00] VITALS: BP_SYST 125
[2022-09-15 20:58] LABS: BASOPHILS # (AUTO) 0.1 K/uL (0.0-0.2); BASOPHILS % (AUTO) 0.6 % (0.0-2.0); EOSINOPHILS # (AUTO) 0.2 K/uL (0.0-0.4); EOSINOPHILS % (AUTO) 1.9 % (0.0-4.0); HEMATOCRIT 28.1 % (36-48); HEMOGLOBIN 9.4 g/dL (12.0-16.0); LYMPHOCYTES # (AUTO) 2.6 K/uL (1.0-5.5); MEAN CORPUSCULAR HEMOGLOBIN 28 pg (27-31); MEAN CORPUSCULAR HGB CONC 34 % (32-36); MEAN CORPUSCULAR VOLUME 84 fL (79.0-98.0); MONOCYTES # (AUTO) 1.1 K/uL (0.0-1.0); MONOCYTES % (AUTO) 9.4 % (1.7-9.3); NEUTROPHILS # (AUTO) 8.2 K/uL (1.8-7.7); NEUTROPHILS % (AUTO) 67.1 % (40.0-70.0); PLATELET COUNT (AUTO) 199 K/uL (130-430); RED BLOOD CELL COUNT(AUTO) 3.34 MIL/uL (4.2-6.2); RED CELL DISTRIBUTION WIDTH 16.8 % (9.0-15.0); WHITE BLOOD COUNT (AUTO) 12.2 K/uL (4.8-10.8)
[2022-09-15] MEDS: SIMVASTATIN 20 MG TABLET PO SCH (21:45)
[2022-09-16] MEDS: DILTIAZEM HCL 60 MG TABLET PO SCH ×2 (00:10→06:04)
[2022-09-16 05:45] LABS: BASOPHILS # (AUTO) 0.1 K/uL (0.0-0.2); BASOPHILS % (AUTO) 0.5 % (0.0-2.0); EOSINOPHILS # (AUTO) 0.4 K/uL (0.0-0.4); EOSINOPHILS % (AUTO) 3.5 % (0.0-4.0); HEMATOCRIT 27.1 % (36-48); HEMOGLOBIN 9.1 g/dL (12.0-16.0); LYMPHOCYTES # (AUTO) 2.7 K/uL (1.0-5.5); LYMPHOCYTES % (AUTO) 24.9 % (20.5-51.5); MEAN CORPUSCULAR HEMOGLOBIN 28 pg (27-31); MEAN CORPUSCULAR HGB CONC 34 % (32-36); MEAN CORPUSCULAR VOLUME 84 fL (79.0-98.0); NEUTROPHILS # (AUTO) 6.6 K/uL (1.8-7.7); NEUTROPHILS % (AUTO) 62.1 % (40.0-70.0); PLATELET COUNT (AUTO) 191 K/uL (130-430); RED BLOOD CELL COUNT(AUTO) 3.23 MIL/uL (4.2-6.2); RED CELL DISTRIBUTION WIDTH 16.9 % (9.0-15.0); WHITE BLOOD COUNT (AUTO) 10.7 K/uL (4.8-10.8)
[2022-09-16] MEDS: NORMAL SALINE 5 ML DISP.SYRIN IVF SCH (06:00)
[2022-09-16 06:22] LABS: ALANINE AMINOTRANSFERASE 11 U/L (12-78); ALBUMIN 2.8 g/dL (3.4-4.8); ANION GAP 8 (5-15); ASPARTATE AMINOTRANSFERASE 11 U/L (10-37); CALCIUM 7.8 mg/dL (8.4-11.0); CHLORIDE 103 mmol/L (98-107); CREATININE 0.83 mg/dL (0.55-1.30); GLUCOSE 118 mg/dL (70-99); PHOSPHORUS 3.3 mg/dL (2.7-4.5); TOTAL BILIRUBIN 0.6 mg/dL (0.0-1.0); UREA NITROGEN, BLOOD 15 mg/dL (8-21)
[2022-09-16 08:02] VITALS: BP_SYST 126
[2022-09-16] MEDS: GABAPENTIN 100 MG CAPSULE PO SCH (09:00)
[2022-09-16] MEDS: CALCIUM 500 MG/TAB PO SCH (09:00)
[2022-09-16] MEDS: MULTIVITS,CA,MINERALS/IRON/FA 1 TABLET PO SCH (09:00)
[2022-09-16] MEDS ORDERED: methIMAzole 5 MG TABLET PO SCH (09:00)
[2022-09-16] MEDS: CYANOCOBALAMIN (VITAMIN B-12) 1,000 MCG TABLET PO SCH (09:01)
[2022-09-16] MEDS: PANTOPRAZOLE SODIUM 40 MG/VIAL (PROTONIX) IVP SCH (09:02)
[2022-09-16] MEDS: CARVEDILOL 25 MG TABLET (COREG) PO SCH (09:02)
[2022-09-16] MEDS: POTASSIUM CHLORIDE 10 MEQ TAB.PRT.SR PO SCH (09:02)
[2022-09-16 12:51] VITALS: BP_SYST 119
== END 2022-09-16 14:06 | DRG 871 ==
LOC: SED 08:33 → STU 11:32 → EEVIPCON 11:32 → STU 18:00 → SIC 09-12 12:24 → STU 09-14 16:10 → SMU 09-15 11:45
PROVIDERS: ADMIT Preventive Medicine Preventive Medicine/Occupational Environmental Medicine; ATTEND Preventive Medicine Preventive Medicine/Occupational Environmental Medicine
PROC: 30233N1 Transfusion of Nonautologous Red Blood Cells into Peripheral Vein, Percutaneous Approach (ICD-10-PCS; 2022-09-12)
PROC: 0DB78ZX Excision of Stomach, Pylorus, Via Natural or Artificial Opening Endoscopic, Diagnostic (ICD-10-PCS; principal; 2022-09-13 07:00)
DX: A41.9 Sepsis, unspecified organism (principal); E43 Unspecified severe protein-calorie malnutrition; K29.71 Gastritis, unspecified, with bleeding; K25.4 Chronic or unspecified gastric ulcer with hemorrhage; K22.6 Gastro-esophageal laceration-hemorrhage syndrome; I48.20 Chronic atrial fibrillation, unspecified; D62 Acute posthemorrhagic anemia; I10 Essential (primary) hypertension; E78.5 Hyperlipidemia, unspecified; E87.6 Hypokalemia; E83.41 Hypermagnesemia; E83.51 Hypocalcemia; E88.09 Other disorders of plasma-protein metabolism, not elsewhere classified; I25.10 Atherosclerotic heart disease of native coronary artery without angina pectoris; E03.9 Hypothyroidism, unspecified; Z20.822 Contact with and (suspected) exposure to COVID-19; R79.89 Other specified abnormal findings of blood chemistry; E78.00 Pure hypercholesterolemia, unspecified; E05.90 Thyrotoxicosis, unspecified without thyrotoxic crisis or storm; R53.81 Other malaise; Z79.01 Long term (current) use of anticoagulants; Z79.899 Other long term (current) drug therapy; Z68.26 Body mass index [BMI] 26.0-26.9, adult
CPT/HCPCS: 36415; 43239; 71045; 76376; 80053; 82550; 83690; 83735; 83880; 84100; 84439; 84443; 84484; 85025; 85610-TC; 85730-TC; 86886; 86900; 86901; 86920; 87081; 88305; 88312; 88313; 93005; 93306; 93970; 96361; 96374; 96375; 96376; 97110-GP; 97116-GP; 97530-GP; 99291; C9113; G0378; J0282; J0610; J2175; J2250; J2405; J3490; J7040; J7042; J7050; J7060; P9021; Q9964; Q9967

== ENCOUNTER 2022-10-30 20:50 | Inpatient (IN) | payer OTHER ==
[~2022-10-30] VITALS: Ht 180.3 cm; Wt 97.1 kg
[2022-10-30 21:03] VITALS: BP_SYST 156; PULSE 89; RESP 22; TEMP 97.8; O2SAT 100
--- NOTE | 2022-10-30 21:07 | NUR ---
PATIENT PICKED UP FROM HOME FOR HAVING SOB, NOTED AT 90% ON ROOM AIR,PATIENT SATURATION 100% ON 15 LITERS NON REBREATHERM BROUGHT IN BY [facility]
--- NOTE | 2022-10-30 21:15 | NUR ---
FIRST CONTACT WITH PT. ASSESSMENT COMPLETED. AWAITING ADDITIONAL EVAL AND ORDERS.
--- NOTE | 2022-10-30 22:13 | NUR ---
MD LOPEZ AT BEDSIDE FOR EVALUATION AND ORDERS.
[2022-10-30 22:15] LABS: ANION GAP 10 (5-15); CALCIUM 8.8 mg/dL (8.4-11.0); CHLORIDE 104 mmol/L (98-107); CREATININE 1.07 mg/dL (0.55-1.30); GLUCOSE 112 mg/dL (74-106); UREA NITROGEN, BLOOD 20 mg/dL (8-21)
[2022-10-30 22:18] LABS: BASOPHILS # (AUTO) 0.1 K/uL (0.0-0.2); BASOPHILS % (AUTO) 1.6 % (0.0-2.0); EOSINOPHILS # (AUTO) 0.2 K/uL (0.0-0.4); EOSINOPHILS % (AUTO) 2.8 % (0.0-4.0); HEMATOCRIT 34.7 % (36-48); HEMOGLOBIN 10.7 g/dL (12.0-16.0); LYMPHOCYTES # (AUTO) 1.7 K/uL (1.0-5.5); LYMPHOCYTES % (AUTO) 19.6 % (20.5-51.5); MEAN CORPUSCULAR HEMOGLOBIN 23 pg (27-31); MEAN CORPUSCULAR HGB CONC 31 % (32-36); MEAN CORPUSCULAR VOLUME 75 fL (79.0-98.0); MONOCYTES # (AUTO) 0.8 K/uL (0.0-1.0); MONOCYTES % (AUTO) 9.3 % (1.7-9.3); NEUTROPHILS # (AUTO) 5.8 K/uL (1.8-7.7); NEUTROPHILS % (AUTO) 66.7 % (40.0-70.0); PLATELET COUNT (AUTO) 340 K/uL (130-430); RED BLOOD CELL COUNT(AUTO) 4.64 MIL/uL (4.2-6.2); RED CELL DISTRIBUTION WIDTH 19.7 % (9.0-15.0); WHITE BLOOD COUNT (AUTO) 8.7 K/uL (4.8-10.8)
[2022-10-30 22:20] LABS: ALANINE AMINOTRANSFERASE 13 U/L (12-78); ALBUMIN 3.5 g/dL (3.4-4.8); ASPARTATE AMINOTRANSFERASE 15 U/L (10-37); TOTAL BILIRUBIN 0.9 mg/dL (0.0-1.0)
--- NOTE | 2022-10-30 22:25 | NUR ---
Paient placed on high flow Oxygen, FIO2 50%, 20LPM
[2022-10-30] MEDS ORDERED: FUROSEMIDE 20 MG/2 ML VIAL IVP ONE (22:30)
--- NOTE | 2022-10-30 23:45 | NUR ---
CARDIZEM DRIP STATED AT 10 MG PER HOUR PER ORDER FOR A-FIB RVR
[2022-10-31] VITALS (25 sets, daily range): BP systolic 97–152; PULSE 76–111; RESP 17–31; TEMP 97.5–98.4; O2SAT 92–100
--- NOTE | 2022-10-31 01:45 | NUR ---
Admit bed requested Patient will be admitted to care of . Admitted to ICU unit. Diagnosis A-FIB/ CHF Inpatient (Yes or No) Y Observation (Yes or No)N Orientation concerns or request close to nursing station (Yes or No)N Covid Status N On vent or bipap N Isolation requirements N Needs a sitter N From Home (Yes or if No enter name of facility)Y Requires Dialysis (Yes or No)N Med Rec Completed (Yes of No)N
--- NOTE | 2022-10-31 05:00 | NUR ---
Patient will be admitted to care of DR. BENITEZ. Admitted to ICU unit. Will go to room ICU. Belongings list completed. Complete and up to date summary report printed. SBAR report to be given at bedside with opportunity for questions.
--- NOTE | 2022-10-31 06:00 | NUR ---
ICU ADMIT PATIENT IS AWAKE AND ALERT. CARDIZEM DRIP AT 15MG/HR. POC DISCUSSED WITH PATIENT. SAFETY PRECAUTIONS IN PLACE, CALL LIGHT WITHIN REACH. WILL CONTINUE TO MONITOR.
--- NOTE | 2022-10-31 06:51 | NUR ---
PHONE NUMBER UPDATED FOR PERSON TO NOTIFY TERESA VALERIE [phone]
[2022-10-31] MEDS ORDERED: NALOXONE HCL 0.4 MG/ML AMP (NARCAN) IVP PRN ×2 (10:00)
[2022-10-31] MEDS ORDERED: ACETAMINOPHEN 325 MG TABLET PO PRN ×2 (10:00→10:15)
[2022-10-31] MEDS ORDERED: LORazepam 2 MG/ML VIAL IVP PRN (10:00)
[2022-10-31] MEDS ORDERED: ONDANSETRON HCL 4 MG/2 ML VIAL IVP PRN (10:00)
[2022-10-31] MEDS ORDERED: HYDROcodone/ACETAMIN 10-325 MG TAB PO PRN (10:00)
[2022-10-31] MEDS ORDERED: HYDROcodone/ACETAMIN 5-325 MG TAB (NORCO/ VICODIN) PO PRN (10:00)
[2022-10-31] MEDS: IPRATROPIUM BROM 0.5 MG/2.5 ML VIAL.NEB (ATROVENT) INH SCH ×4 (12:52→23:31)
[2022-10-31] MEDS: ALBUTEROL SULFATE 0.083% 2.5 MG/3 ML VIAL.NEB INH SCH ×4 (12:53→23:30)
[2022-10-31] MEDS ORDERED: CARVEDILOL 25 MG TABLET (COREG) PO ONE (13:45)
[2022-10-31] MEDS: NORMAL SALINE 5 ML DISP.SYRIN IVF SCH ×2 (14:04→20:52)
--- NOTE | 2022-10-31 15:58 | NUR ---
Telephone call made to the friend, Pippa Davison. I left a message with my contact information requesting her to return my call.
[2022-10-31 16:01] LABS: FREE T4 (FREE THYROXINE) 1.6 ng/dL (0.6-1.6); THYROID STIMULATING HORMONE 1.53 uIu/mL (0.34-4.82)
[2022-10-31] MEDS ORDERED: SILDENAFIL CITRATE 20 MG TABLET PO ONE (17:15)
[2022-10-31] MEDS: CARVEDILOL 25 MG TABLET (COREG) PO SCH (20:49)
[2022-10-31] MEDS: GABAPENTIN 100 MG CAPSULE PO SCH (20:50)
[2022-10-31] MEDS: APIXABAN 2.5 MG TABLET PO SCH (20:50)
[2022-10-31] MEDS: SILDENAFIL CITRATE 20 MG TABLET PO SCH (20:51)
[2022-10-31] MEDS: SIMVASTATIN 20 MG TABLET PO SCH (20:52)
[2022-10-31] MEDS ORDERED: CARVEDILOL 25 MG TABLET (COREG) PO SCH (21:00)
[2022-11-01] VITALS (28 sets, daily range): BP systolic 102–143; PULSE 92–110; RESP 11–30; TEMP 97–98.3; O2SAT 94–100
[2022-11-01] MEDS: ALBUTEROL SULFATE 0.083% 2.5 MG/3 ML VIAL.NEB INH SCH ×6 (02:40→23:10)
[2022-11-01] MEDS: IPRATROPIUM BROM 0.5 MG/2.5 ML VIAL.NEB (ATROVENT) INH SCH ×6 (02:40→23:10)
[2022-11-01 05:44] LABS: BASOPHILS # (AUTO) 0.1 K/uL (0.0-0.2); BASOPHILS % (AUTO) 1.1 % (0.0-2.0); EOSINOPHILS # (AUTO) 0.4 K/uL (0.0-0.4); EOSINOPHILS % (AUTO) 5.4 % (0.0-4.0); HEMATOCRIT 31.9 % (36-48); HEMOGLOBIN 9.6 g/dL (12.0-16.0); LYMPHOCYTES # (AUTO) 2.3 K/uL (1.0-5.5); LYMPHOCYTES % (AUTO) 34.7 % (20.5-51.5); MEAN CORPUSCULAR HEMOGLOBIN 23 pg (27-31); MEAN CORPUSCULAR HGB CONC 30 % (32-36); MEAN CORPUSCULAR VOLUME 75 fL (79.0-98.0); MONOCYTES # (AUTO) 0.7 K/uL (0.0-1.0); MONOCYTES % (AUTO) 10.8 % (1.7-9.3); NEUTROPHILS # (AUTO) 3.2 K/uL (1.8-7.7); PLATELET COUNT (AUTO) 297 K/uL (130-430); RED BLOOD CELL COUNT(AUTO) 4.26 MIL/uL (4.2-6.2); RED CELL DISTRIBUTION WIDTH 19.3 % (9.0-15.0); WHITE BLOOD COUNT (AUTO) 6.6 K/uL (4.8-10.8)
[2022-11-01 06:20] LABS: ANION GAP 10 (5-15); CALCIUM 8.7 mg/dL (8.4-11.0); CHLORIDE 106 mmol/L (98-107); CREATININE 0.99 mg/dL (0.55-1.30); GLUCOSE 110 mg/dL (74-106); PHOSPHORUS 3.7 mg/dL (2.7-4.5); UREA NITROGEN, BLOOD 17 mg/dL (8-21)
[2022-11-01] MEDS: NORMAL SALINE 5 ML DISP.SYRIN IVF SCH ×3 (06:28→20:32)
[2022-11-01] MEDS: CALCIUM 500 MG/TAB PO SCH (08:25)
[2022-11-01] MEDS: CARVEDILOL 25 MG TABLET (COREG) PO SCH ×2 (08:26→20:31)
[2022-11-01] MEDS: MULTIVITS,CA,MINERALS/IRON/FA 1 TABLET PO SCH (08:26)
[2022-11-01] MEDS: SILDENAFIL CITRATE 20 MG TABLET PO SCH ×3 (08:26→20:32)
[2022-11-01] MEDS: GABAPENTIN 100 MG CAPSULE PO SCH ×2 (08:26→20:32)
[2022-11-01] MEDS: CYANOCOBALAMIN (VITAMIN B-12) 1,000 MCG TABLET PO SCH (08:26)
[2022-11-01] MEDS: POTASSIUM CHLORIDE 10 MEQ TAB.PRT.SR PO SCH (08:26)
[2022-11-01] MEDS: APIXABAN 2.5 MG TABLET PO SCH ×2 (08:27→20:38)
[2022-11-01] MEDS: methIMAzole 5 MG TABLET PO SCH (08:27)
[2022-11-01] MEDS ORDERED: DILTIAZEM HCL 120 MG CAP.SR.24H PO ONE (11:30)
--- NOTE | 2022-11-01 11:49 | NUR ---
Implementation Engineer re: social service referral Follow up call made to the friend, Pippa Davison, to discuss the living circumstances of the patient. In speaking with Pippa, I inquired on how long the patient was at [facility] from her last admission. per Pippa, upon discharge from the last admission, she went to [facility] and was there for approximately 2 weeks. Pippa states the patient came home and was doing quite well up until about a week ago. While at home, Pippa was setting up her medication weekly in a pill box but was calling the patient day and night to ensure she took her morning and evening medications. Pippa states she believes the pateint took out the lasix pill and was not taking that pill in her medication regimen. The patient also had home health services through [facility]. The patient had a nurse and PT services. She was still doing some minimal driving with her in the car, but was coming around. Pippa had several appointments already lined up for the patient. This she has an appointment with her dispensing optician, Dr. Vargas in [place]. On Monday, she has an appointment with her PCP, Dr. Nolen, in [place] to review her recent MRI. next there is a follow up appointment scheduled with her neurologist, Dr. Antunez in [place]. The patient also has a law researcher, Dr. Guadalupe, however there is no upcoming appointment scheduled for her. About a week ago, an APS report was filed against the patient. Pippa is unsure as to where it come from. According to the APS worker, Bin Ken, the report indicated that the patient is mentally unstable, she has no food in her home, and was unsure as to who she was or her whereabouts. Pippa spoke to the APS worker, who advised her that he thought she filed the report. Pippa states she did not file the report. I inquired about the APS worker's number, however she did not have it. At this time, Pippa states the patient continues to be adamant that she is not going to an ANA. She states they have had the discussion multiple times, and the patient remains against moving into an GROUP HOME. The patient did agree to sit with Pippa to review her finances and consider a library circulation department chief caregiver to come into the home. Per Pippa, she has called around and is aware that in home care giving rates are at about $25 an hour. She states they have not had the chance to sit and discuss, and she is unsure as to what the patient has to work with in finances. Pippa is not the patient's legal POA. The patient has a trust that was written 25 years ago. The people listed in the trust are now and it is unknown as to where they reside. The patient has no children. She has two distant relatives whom she hasn't had communication with in over 4 years.
--- NOTE | 2022-11-01 17:29 | NUR ---
SPOKE WITH KAREN REQUESTING ORDERS FROM DR. Rodger BENITEZ PER RN'S REQUEST.
--- NOTE | 2022-11-01 19:30 | NUR ---
TRANSFER PT TRANSFERRED TO TELE RM 118B VIA BED IN STABLE CONDITION. REPORT GIVEN TO ZAKI MEDELLIN FOR ASSUMPTION OF CARE.
--- NOTE | 2022-11-01 20:00 | NUR ---
pt.received as transfer from the unit icu.danicarn conveyed pt's report/data.pt.presents inh treatment in progress. pt.presents sob;dyspnea.pt.receiving o2 therapy via nasal cannulae:2-3l/min.02-sat%=98%.v/s assessed values wnl. pt.capable to ambulate/reposition self.call light/telephone presented/demonstration provided placed w/in access of the pt.
[2022-11-01] MEDS: SIMVASTATIN 20 MG TABLET PO SCH (20:32)
--- NOTE | 2022-11-01 21:00 | NUR ---
2100p medications administered.pt.capable to ingest the medications w/out difficulty.no c/o pain,nausea.no requests posited@this hour.call light/telephone placed w/in access of the pt.
--- NOTE | 2022-11-01 22:00 | NUR ---
pt.assessed.pt.quiescent.02-sat%=96%.per flacc pain mgx pt.absent facial grimaces/body posturing.pt.capable to reposition self call light/telephone placed w/in access of the pt.
[2022-11-02] VITALS (11 sets, daily range): BP systolic 110–130; PULSE 101–118; RESP 16–20; TEMP 97–97.7; O2SAT 94–98
--- NOTE | 2022-11-02 | NUR ---
pt.assessed.v/s assessed values wnl.o2-sat%=98%.no c/o pain,nausea.no requests posited@this hour.pt.capable to reposition self.call light/telephone w/in access of the pt.
--- NOTE | 2022-11-02 02:00 | NUR ---
pt.assessed.pt.soiled bed.pt.required cleaning.pt.cleaned per willy;flight control specialist.pt.repositioned.no c/o pain,nausea.no requests posited@this hour.call light/telephone placed w/in access of the pt.
[2022-11-02] MEDS: ALBUTEROL SULFATE 0.083% 2.5 MG/3 ML VIAL.NEB INH SCH ×6 (03:00→23:00)
[2022-11-02] MEDS: IPRATROPIUM BROM 0.5 MG/2.5 ML VIAL.NEB (ATROVENT) INH SCH ×6 (03:00→23:00)
--- NOTE | 2022-11-02 04:00 | NUR ---
pt.assessed.pt.quiescent;somnolent.per flacc pain mgx pt.absent facial grimaces/body posturing.pt.assessed for cleanliness. pt.repositioned.02-mon%=96%call light/telephone placed w/in access of the pt.
[2022-11-02 05:05] LABS: BASOPHILS # (AUTO) 0.1 K/uL (0.0-0.2); BASOPHILS % (AUTO) 1.2 % (0.0-2.0); EOSINOPHILS # (AUTO) 0.4 K/uL (0.0-0.4); EOSINOPHILS % (AUTO) 5.7 % (0.0-4.0); LYMPHOCYTES % (AUTO) 31.5 % (20.5-51.5); MONOCYTES # (AUTO) 0.7 K/uL (0.0-1.0); NEUTROPHILS # (AUTO) 3.3 K/uL (1.8-7.7); NEUTROPHILS % (AUTO) 50.6 % (40.0-70.0)
[2022-11-02] MEDS: NORMAL SALINE 5 ML DISP.SYRIN IVF SCH ×3 (05:10→21:36)
[2022-11-02 05:26] LABS: WHITE BLOOD COUNT (AUTO) 6.5 K/uL (4.8-10.8)
[2022-11-02 05:31] LABS: HEMOGLOBIN 9.8 g/dL (12.0-16.0)
[2022-11-02 05:32] LABS: HEMATOCRIT 31.2 % (36-48); MEAN CORPUSCULAR HEMOGLOBIN 23 pg (27-31); MEAN CORPUSCULAR HGB CONC 31 % (32-36); MEAN CORPUSCULAR VOLUME 73 fL (79.0-98.0); PLATELET COUNT (AUTO) 288 K/uL (130-430); RED BLOOD CELL COUNT(AUTO) 4.29 MIL/uL (4.2-6.2); RED CELL DISTRIBUTION WIDTH 19.1 % (9.0-15.0)
[2022-11-02 05:58] LABS: ANION GAP 8 (5-15); CALCIUM 8.5 mg/dL (8.4-11.0); CHLORIDE 108 mmol/L (98-107); CREATININE 0.83 mg/dL (0.55-1.30); GLUCOSE 96 mg/dL (74-106); UREA NITROGEN, BLOOD 15 mg/dL (8-21)
--- NOTE | 2022-11-02 06:00 | NUR ---
pt.assessed.pt.quiescent;resting.no c/o pain,nausea.pt.requested coffee provided.pt.weighed 2/t chf/lasix administration. call light/telephone placed w/in access of the pt.
[2022-11-02] MEDS: POTASSIUM CHLORIDE 10 MEQ TAB.PRT.SR PO SCH (10:46)
[2022-11-02] MEDS: DILTIAZEM HCL 120 MG CAP.SR.24H PO SCH (10:46)
[2022-11-02] MEDS: MULTIVITS,CA,MINERALS/IRON/FA 1 TABLET PO SCH (10:47)
[2022-11-02] MEDS: GABAPENTIN 100 MG CAPSULE PO SCH ×2 (10:47→21:30)
[2022-11-02] MEDS: CALCIUM 500 MG/TAB PO SCH (10:47)
[2022-11-02] MEDS: CYANOCOBALAMIN (VITAMIN B-12) 1,000 MCG TABLET PO SCH (10:47)
[2022-11-02] MEDS: SILDENAFIL CITRATE 20 MG TABLET PO SCH ×3 (10:48→21:30)
[2022-11-02] MEDS: CARVEDILOL 25 MG TABLET (COREG) PO SCH ×2 (10:48→21:34)
[2022-11-02] MEDS: methIMAzole 5 MG TABLET PO SCH (10:49)
[2022-11-02] MEDS: APIXABAN 2.5 MG TABLET PO SCH ×2 (10:54→21:36)
--- NOTE | 2022-11-02 13:19 | NUR ---
Patient was on service with [facility] prior to this admission for RN med/disease management and PT. Per eval patient friend states a need for medication safety eval as patient is not taking her lasix as ordered. CM reached out to [facility] and confirmed that patient last visit was on 10/27/22 for mid level game designer management and PT. CARLOTA reached out to Dr Josse Kim for DC plan order to resume existing service.
--- NOTE | 2022-11-02 13:42 | NUR ---
[facility] [phone]. waiting on PT eval notes
--- NOTE | 2022-11-02 15:11 | NUR ---
CM faxed PT eval notes to [facility].
--- NOTE | 2022-11-02 17:11 | NUR ---
Patient to resume service with [facility] [phone]. They were still reviewing referral packet. CM to follow up in am
--- NOTE | 2022-11-02 19:35 | NUR ---
INITIAL NOTE AT INITIAL ASSESSMENT, PATIENT IS RESTING IN BED WATCHING TV. SHE IS AT 96% OXYGEN SATURATION WITH 2L NC. PATIENT VERBALIZES NO PAIN FOR SHORTNESS OF BREATH. PLAN OF CARE FOR THE EVENING IS COMMUNICATED WITH THE PATIENT. CALL LIGHT TEACH BACK IS SUCCESSFUL AT THIS TIME; CALL LIGHT IS PLACED WITHIN REACH OF PATIENT'S HAND. NURSING ROUNDS WILL BE COMPLETED AT LEAST Q1HOUR DURING THE SHIFT. BED LOCKED, ALARMED, AND AT THE LOWEST LEVEL. FALL, SAFETY, RESPIRATORY, AND ASPIRATION PRECAUTION WILL BE TAKEN THROUGHOUT THE SHIFT.
[2022-11-02] MEDS: SIMVASTATIN 20 MG TABLET PO SCH (21:31)
--- NOTE | 2022-11-02 23:30 | NUR ---
BOWEL MOVEMENT/ HYGIENE CARE PATIENT IS ASSISTED TO BED SIDE COMMODE FOR A MODERATE SIZE BOWEL MOVEMENT. HYGIENE CARE PROVIDED AT THIS TIME. FRESH LINENS PROVIDED. PATIENT IS REPOSITIONED FOR COMFORT. SHE TOLERATED WELL. BED IS LOCKED, ALARMED, AND AT THE LOWEST LEVEL.
[2022-11-03] VITALS (9 sets, daily range): BP systolic 112–128; PULSE 98–116; RESP 18–20; TEMP 96.8–98.3; O2SAT 95–98
--- NOTE | 2022-11-03 02:25 | NUR ---
HYGIENE CARE PATIENT HAD A VOID WHILE SLEEPING, HYGIENE CARE PROVIDED AT THIS TIME. FRESH LINENS PROVIDED. PATIENT IS REPOSITIONED FOR COMFORT. SHE TOLERATED WELL. BED IS LOCKED, ALARMED, AND AT THE LOWEST LEVEL.
[2022-11-03] MEDS: ALBUTEROL SULFATE 0.083% 2.5 MG/3 ML VIAL.NEB INH SCH ×6 (03:00→23:52)
[2022-11-03] MEDS: IPRATROPIUM BROM 0.5 MG/2.5 ML VIAL.NEB (ATROVENT) INH SCH ×6 (03:00→23:52)
[2022-11-03 04:33] LABS: BASOPHILS # (AUTO) 0.1 K/uL (0.0-0.2); BASOPHILS % (AUTO) 1.6 % (0.0-2.0); EOSINOPHILS # (AUTO) 0.4 K/uL (0.0-0.4); EOSINOPHILS % (AUTO) 5.3 % (0.0-4.0); HEMATOCRIT 30.4 % (36-48); HEMOGLOBIN 9.2 g/dL (12.0-16.0); LYMPHOCYTES # (AUTO) 2.4 K/uL (1.0-5.5); LYMPHOCYTES % (AUTO) 35.2 % (20.5-51.5); MEAN CORPUSCULAR HEMOGLOBIN 22 pg (27-31); MEAN CORPUSCULAR HGB CONC 30 % (32-36); MEAN CORPUSCULAR VOLUME 74 fL (79.0-98.0); MONOCYTES # (AUTO) 0.7 K/uL (0.0-1.0); NEUTROPHILS # (AUTO) 3.1 K/uL (1.8-7.7); NEUTROPHILS % (AUTO) 46.9 % (40.0-70.0); PLATELET COUNT (AUTO) 278 K/uL (130-430); RED BLOOD CELL COUNT(AUTO) 4.14 MIL/uL (4.2-6.2); RED CELL DISTRIBUTION WIDTH 19.7 % (9.0-15.0); WHITE BLOOD COUNT (AUTO) 6.7 K/uL (4.8-10.8)
[2022-11-03 04:51] LABS: ANION GAP 7 (5-15); CALCIUM 8.7 mg/dL (8.4-11.0); CHLORIDE 108 mmol/L (98-107); GLUCOSE 100 mg/dL (74-106); UREA NITROGEN, BLOOD 15 mg/dL (8-21)
[2022-11-03] MEDS: NORMAL SALINE 5 ML DISP.SYRIN IVF SCH ×3 (06:15→21:22)
--- NOTE | 2022-11-03 06:49 | NUR ---
CLOSING NOTE PATIENT SLEPT WELL THROUGHOUT THE NIGHT. NO ACUTE CARDIAC OR RESPIRATORY EVENTS DURING THE SHIFT, SHE REMAINS ON 2L NASAL CANNULA WITH OXYGEN SATURATION AT 97%. FALL, SAFETY, RESPIRATORY, AND ASPIRATION PRECAUTIONS HAVE BEEN TAKEN THROUGHOUT THE NIGHT. BED IS LOCKED, ALARMED, AND AT THE LOWEST LEVEL. WILL CONTINUE TO MONITOR UNTIL REPORT IS GIVEN AT BEDSIDE TO AM NURSE.
[2022-11-03] MEDS: CYANOCOBALAMIN (VITAMIN B-12) 1,000 MCG TABLET PO SCH (09:50)
[2022-11-03] MEDS: SILDENAFIL CITRATE 20 MG TABLET PO SCH ×3 (09:50→21:19)
[2022-11-03] MEDS: APIXABAN 2.5 MG TABLET PO SCH ×2 (09:52→21:22)
[2022-11-03] MEDS: GABAPENTIN 100 MG CAPSULE PO SCH ×2 (09:53→21:20)
[2022-11-03] MEDS: CALCIUM 500 MG/TAB PO SCH (09:54)
[2022-11-03] MEDS: MULTIVITS,CA,MINERALS/IRON/FA 1 TABLET PO SCH (09:55)
[2022-11-03] MEDS: CARVEDILOL 25 MG TABLET (COREG) PO SCH ×2 (09:55→21:20)
[2022-11-03] MEDS: POTASSIUM CHLORIDE 10 MEQ TAB.PRT.SR PO SCH (09:56)
[2022-11-03] MEDS: DILTIAZEM HCL 120 MG CAP.SR.24H PO SCH (09:56)
--- NOTE | 2022-11-03 11:53 | NUR ---
[facility] accepted this patient back onto their service. They will resume care tomorrow. CARLOTA faxed DME order to [facility]# Will follow up Addendum: 11/03/22 at 1155 by Sheeba Rodney RN Anthony arceo#[phone]
--- NOTE | 2022-11-03 12:07 | NUR ---
Dr Shahriar Kim contacted by nursing for increased HR 110-130s. Patient discharge still pending cardiology clearance.
[2022-11-03] MEDS: methIMAzole 5 MG TABLET PO SCH (12:14)
--- NOTE | 2022-11-03 17:04 | NUR ---
yarn mercerizer operator appointment attempted to make cardio appointment for after discharge. Office closed. Will call in the Am to make appointment with Dr. Guadalupe [phone]
--- NOTE | 2022-11-03 17:50 | NUR ---
PATIENT'S DISCHARGED TO HOME. SPOKE TO TERESA, A FRIEND @ [phone] THAT SHE COULD NOT PICK THE PATIENT UP BECAUSE SHE DOES NOT LIKE TO DRIVE IN THE DARK AND PATIENT COULD NOT GO HOME BECAUSE SHE DID NOT THE HOUSE APARICIO. TERESA WILL BE HERE AT 9AM, DR. BENITEZ MADE AWARE.
[2022-11-03] MEDS ORDERED: DILT180C66 PO (18:02)
[2022-11-03] MEDS ORDERED: SILD20TA PO (18:02)
--- NOTE | 2022-11-03 19:41 | NUR ---
PM ASSESSMENT; - Patient is awake, alert, oriented X4. Episodes of forgetfulness noted. Pt denies any chest pain,pain,sob,or any acute distress. Discussed poc,pain mgmt, safety measures with pt, she verbalized understanding. Patient oriented to hospital room, call light, toileting, pain management and safety-teach back done. Patient informed that I ( Che) will be her nurse and that her room number is 118-B. Fall precaution in place, side rails x3, and call light within reach. BSC with assistance. Cont to monitor pt.
[2022-11-03] MEDS: SIMVASTATIN 20 MG TABLET PO SCH (21:20)
[2022-11-04 00:01] VITALS: O2SAT 93
[2022-11-04 00:12] VITALS: BP_SYST 116; PULSE 97; RESP 18; TEMP 97; O2SAT 96
--- NOTE | 2022-11-04 00:12 | NUR ---
ROUNDS; -Pt is resting in bed comfortably. No s/s any acute distress noted. VS stable. Bed alarmed,side rails x3,call light w/in reach. Cont to monitor pt.
--- NOTE | 2022-11-04 01:54 | NUR ---
ROUNDS; -Pt is resting in bed comfortably. No s/s any acute distress noted. Pt's condition stable. Bed alarmed,side rails x3,call light w/in reach. Cont to monitor pt.
[2022-11-04] MEDS: ALBUTEROL SULFATE 0.083% 2.5 MG/3 ML VIAL.NEB INH SCH ×2 (03:00→07:00)
[2022-11-04] MEDS: IPRATROPIUM BROM 0.5 MG/2.5 ML VIAL.NEB (ATROVENT) INH SCH ×2 (03:00→07:00)
--- NOTE | 2022-11-04 04:08 | NUR ---
ROUNDS; -Pt is asleep in bed comfortably. No s/s any acute distress noted. Bed alarmed,side rails x3,call light w/in reach. Cont to monitor pt
[2022-11-04 05:30] LABS: BASOPHILS # (AUTO) 0.1 K/uL (0.0-0.2); BASOPHILS % (AUTO) 1.2 % (0.0-2.0); EOSINOPHILS # (AUTO) 0.3 K/uL (0.0-0.4); EOSINOPHILS % (AUTO) 5.5 % (0.0-4.0); HEMATOCRIT 33.1 % (36-48); HEMOGLOBIN 9.9 g/dL (12.0-16.0); LYMPHOCYTES # (AUTO) 2.1 K/uL (1.0-5.5); LYMPHOCYTES % (AUTO) 34.4 % (20.5-51.5); MEAN CORPUSCULAR HEMOGLOBIN 22 pg (27-31); MEAN CORPUSCULAR HGB CONC 30 % (32-36); MEAN CORPUSCULAR VOLUME 74 fL (79.0-98.0); MONOCYTES # (AUTO) 0.6 K/uL (0.0-1.0); MONOCYTES % (AUTO) 10.5 % (1.7-9.3); NEUTROPHILS % (AUTO) 48.4 % (40.0-70.0); PLATELET COUNT (AUTO) 276 K/uL (130-430); RED BLOOD CELL COUNT(AUTO) 4.45 MIL/uL (4.2-6.2); RED CELL DISTRIBUTION WIDTH 19.9 % (9.0-15.0); WHITE BLOOD COUNT (AUTO) 6.1 K/uL (4.8-10.8)
[2022-11-04 06:01] LABS: ANION GAP 10 (5-15); CALCIUM 8.5 mg/dL (8.4-11.0); CHLORIDE 107 mmol/L (98-107); CREATININE 0.87 mg/dL (0.55-1.30); GLUCOSE 93 mg/dL (74-106); UREA NITROGEN, BLOOD 17 mg/dL (8-21)
--- NOTE | 2022-11-04 06:36 | NUR ---
CLOSING NOTES; -Pt is resting in bed comfortably. No s/s any chest pain,pain,sob,or any acute distress noted. IV site patent no s/s any infiltration. Fall precaution in place, side rails x3, and call light within reach. Will endorse to next nurse to continuity of care.
[2022-11-04] MEDS: NORMAL SALINE 5 ML DISP.SYRIN IVF SCH (06:58)
--- NOTE | 2022-11-04 07:47 | NUR ---
PHYSICAL THERAPY CO-SIGN The Physical Therapy Progress Notes documented by Cloud Engineer have been reviewed. Reviewed/Co-Signed by: Mahesh Aranda Documentation Done by:DARLYN TIDWELL Addendum: 11/04/22 at 0747 by Mahesh Aranda PT Amended: Links added.
[2022-11-04 08:00] VITALS: BP_SYST 113; PULSE 130; RESP 18; TEMP 97.9; O2SAT 97
[2022-11-04] MEDS ORDERED: DILTIAZEM HCL 180 MG CAP.SR.24H PO SCH (09:00)
[2022-11-04] MEDS: methIMAzole 5 MG TABLET PO SCH (09:00)
[2022-11-04 09:16] VITALS: BP_SYST 113; PULSE 130; RESP 18; TEMP 97.9; O2SAT 97
[2022-11-04] MEDS: GABAPENTIN 100 MG CAPSULE PO SCH (09:29)
[2022-11-04] MEDS: MULTIVITS,CA,MINERALS/IRON/FA 1 TABLET PO SCH (09:29)
[2022-11-04] MEDS: POTASSIUM CHLORIDE 10 MEQ TAB.PRT.SR PO SCH (09:29)
[2022-11-04] MEDS: SILDENAFIL CITRATE 20 MG TABLET PO SCH (09:29)
[2022-11-04] MEDS: CYANOCOBALAMIN (VITAMIN B-12) 1,000 MCG TABLET PO SCH (09:29)
[2022-11-04] MEDS: CALCIUM 500 MG/TAB PO SCH (09:29)
[2022-11-04] MEDS: CARVEDILOL 25 MG TABLET (COREG) PO SCH (09:30)
[2022-11-04] MEDS: APIXABAN 2.5 MG TABLET PO SCH (09:32)
--- NOTE | 2022-11-04 10:05 | NUR ---
pt dc home. Pt was dc last night but unable to have friend pick her up due to friend not driving at [employer]. pt received all education. pt has all paperwork and belongings. iv removed. id band removed. pt taken to parking lot via wheelchair
--- NOTE | 2022-11-04 10:39 | NUR ---
TRIED TO ARRANGE WITH HER TEST CAR DRIVER, DR BYRD FOR A FOLLOW UP APPT. I WAS DIRECTED TO THE PA SENIOR SPEECH PATHOLOGIST OF DR BYRD, DALE. I LEFT HIM A VOICE MESSAGE TO CALL THE UNIT BACK FOR THE F/U APPT.
--- NOTE | 2022-11-04 16:13 | NUR ---
WAYLON HUNTER OF DR BYRD CALLED BACK AND PROVIDED NEXT MONDAY, NOVEMBER 04, 2022 TO BE THERE AT HIS OFFICE. WAYLON ORBERTS ALSO REQUESTED ME TO FAX THE H/P TO DR BYRD'S OFFICE. WILL INFORM PT OF HER APPT AND WILL FAX THE H/P.
--- NOTE | 2022-11-07 07:53 | NUR ---
PHYSICAL THERAPY CO-SIGN The Physical Therapy Progress Notes documented by Tower Helper have been reviewed. Reviewed/Co-Signed by: Mahesh Aranda Documentation Done by:DARLYN TIDWELL Addendum: 11/07/22 at 7753 by Mahesh Aranda PT Amended: Links added.
== END 2022-11-04 10:15 | disposition home health service (06) | DRG 291 ==
LOC: SED 20:50 → SIC 10-31 01:39 → STU 11-01 19:56 → SMU 11-03 15:00
PROVIDERS: ADMIT Preventive Medicine Preventive Medicine/Occupational Environmental Medicine; ATTEND Preventive Medicine Preventive Medicine/Occupational Environmental Medicine
DX: I11.0 Hypertensive heart disease with heart failure (principal); I50.31 Acute diastolic (congestive) heart failure; J96.01 Acute respiratory failure with hypoxia; I48.91 Unspecified atrial fibrillation; E83.42 Hypomagnesemia; D64.9 Anemia, unspecified; E78.5 Hyperlipidemia, unspecified; E05.90 Thyrotoxicosis, unspecified without thyrotoxic crisis or storm; I25.10 Atherosclerotic heart disease of native coronary artery without angina pectoris; R73.9 Hyperglycemia, unspecified; I27.20 Pulmonary hypertension, unspecified; R53.81 Other malaise; Z79.01 Long term (current) use of anticoagulants; Z79.899 Other long term (current) drug therapy
CPT/HCPCS: 36415; 71045; 80048; 80053; 83735; 83880; 84100; 84439; 84443; 84484; 85025; 85379; 87081; 93005; 93970; 94640; 94760; 97110-GP; 97116-GP; 97530-GP; 99285; G0378; J1940; J3490; J7060; J7613

== ENCOUNTER 2022-12-15 00:24 | Inpatient (IN) | payer OTHER ==
[~2022-12-15] VITALS: Ht 180.3 cm; Wt 93.1 kg
[2022-12-15] VITALS (7 sets, daily range): BP systolic 116–144; PULSE 105–128; RESP 16–19; TEMP 96.9–98.6; O2SAT 95–98
[~2022-12-15 00:24] MED LIST changes: +DILT180C66 PO; +SILD20TA PO
[2022-12-15 01:17] LABS: BASOPHILS # (AUTO) 0.1 K/uL (0.0-0.2); BASOPHILS % (AUTO) 1.1 % (0.0-2.0); EOSINOPHILS # (AUTO) 0.2 K/uL (0.0-0.4); EOSINOPHILS % (AUTO) 3.4 % (0.0-4.0); HEMATOCRIT 33.9 % (36-48); HEMOGLOBIN 10.3 g/dL (12.0-16.0); LYMPHOCYTES # (AUTO) 2.4 K/uL (1.0-5.5); MEAN CORPUSCULAR HEMOGLOBIN 22 pg (27-31); MEAN CORPUSCULAR HGB CONC 31 % (32-36); MEAN CORPUSCULAR VOLUME 71 fL (79.0-98.0); MONOCYTES # (AUTO) 0.7 K/uL (0.0-1.0); MONOCYTES % (AUTO) 11.5 % (1.7-9.3); NEUTROPHILS # (AUTO) 2.4 K/uL (1.8-7.7); PLATELET COUNT (AUTO) 257 K/uL (130-430); RED BLOOD CELL COUNT(AUTO) 4.77 MIL/uL (4.2-6.2); RED CELL DISTRIBUTION WIDTH 23.1 % (9.0-15.0); WHITE BLOOD COUNT (AUTO) 5.7 K/uL (4.8-10.8)
[2022-12-15] MEDS ORDERED: dilTIAZem HCL IVP 5 MG/ML VIAL IVP ONE (01:30)
[2022-12-15 01:46] LABS: ALANINE AMINOTRANSFERASE 7 U/L (12-78); ALBUMIN 3.3 g/dL (3.4-4.8); ANION GAP 7 (5-15); ASPARTATE AMINOTRANSFERASE 17 U/L (10-37); CALCIUM 8.6 mg/dL (8.4-11.0); CARBON DIOXIDE 27 mmol/L (23-29); CHLORIDE 103 mmol/L (98-107); CREATININE 0.91 mg/dL (0.55-1.30); GLUCOSE 106 mg/dL (74-106); POTASSIUM 3.2 mmol/L (3.5-5.1); SODIUM SERUM 137 mmol/L (136-145); TOTAL BILIRUBIN 0.5 mg/dL (0.0-1.0); TOTAL PROTEIN, SERUM 6.1 g/dL (6.4-8.3); UREA NITROGEN, BLOOD 13 mg/dL (8-21)
[2022-12-15 01:47] LABS: INR 1.1 (0.8-1.2); PROTHROMBIN TIME 11.6 SECS (9.5-12.5)
[2022-12-15] MEDS ORDERED: POTASSIUM CHLORIDE 20 MEQ/PKT PACKET PO ONE (02:30)
[2022-12-15] MEDS ORDERED: DILTIAZEM HCL 180 MG CAP.SR.24H PO ONE (16:00)
[2022-12-15] MEDS ORDERED: methIMAzole 5 MG TABLET PO ONE (16:00)
[2022-12-15] MEDS ORDERED: APIXABAN 2.5 MG TABLET PO ONE (16:00)
[2022-12-15] MEDS ORDERED: CARVEDILOL 25 MG TABLET (COREG) PO ONE (16:00)
[2022-12-15] MEDS ORDERED: GABAPENTIN 100 MG CAPSULE PO ONE (16:00)
[2022-12-15] MEDS ORDERED: SILDENAFIL CITRATE 20 MG TABLET PO ONE (16:00)
[2022-12-15] MEDS ORDERED: HYDROcodone/ACETAMIN 10-325 MG TAB PO PRN (20:00)
[2022-12-15] MEDS ORDERED: ACETAMINOPHEN 325 MG TABLET PO PRN ×2 (20:00→20:30)
[2022-12-15] MEDS ORDERED: ONDANSETRON HCL 4 MG/2 ML VIAL IVP PRN (20:00)
[2022-12-15] MEDS ORDERED: HYDROcodone/ACETAMIN 5-325 MG TAB (NORCO/ VICODIN) PO PRN (20:00)
[2022-12-15] MEDS ORDERED: LORazepam 2 MG/ML VIAL IVP PRN (20:00)
[2022-12-15] MEDS ORDERED: NALOXONE HCL 0.4 MG/ML AMP (NARCAN) IVP PRN ×2 (20:00)
[2022-12-15] MEDS ORDERED: NON-FORMULARY MEDICATION (Apixaban (Eliquis) 5 MG) PO SCH (21:00)
[2022-12-15] MEDS: APIXABAN 2.5 MG TABLET PO SCH (21:00)
[2022-12-15] MEDS ORDERED: SIMVASTATIN 20 MG TABLET PO SCH (21:00)
[2022-12-15] MEDS: SILDENAFIL CITRATE 20 MG TABLET PO SCH (21:10)
[2022-12-15] MEDS: CARVEDILOL 25 MG TABLET (COREG) PO SCH (21:10)
[2022-12-15] MEDS: NORMAL SALINE 5 ML DISP.SYRIN IVF SCH (21:11)
[2022-12-15] MEDS: GABAPENTIN 100 MG CAPSULE PO SCH (21:11)
[2022-12-15] MEDS ORDERED: dilTIAZem HCL IVP 5 MG/ML VIAL IVP PRN (22:30)
[2022-12-16 05:11] LABS: BASOPHILS # (AUTO) 0.1 K/uL (0.0-0.2); EOSINOPHILS # (AUTO) 0.2 K/uL (0.0-0.4); EOSINOPHILS % (AUTO) 3.9 % (0.0-4.0); HEMATOCRIT 34.1 % (36-48); HEMOGLOBIN 10.1 g/dL (12.0-16.0); LYMPHOCYTES # (AUTO) 1.7 K/uL (1.0-5.5); LYMPHOCYTES % (AUTO) 31.5 % (20.5-51.5); MEAN CORPUSCULAR HEMOGLOBIN 21 pg (27-31); MEAN CORPUSCULAR HGB CONC 29 % (32-36); MEAN CORPUSCULAR VOLUME 73 fL (79.0-98.0); MONOCYTES # (AUTO) 0.6 K/uL (0.0-1.0); NEUTROPHILS # (AUTO) 2.8 K/uL (1.8-7.7); NEUTROPHILS % (AUTO) 52.6 % (40.0-70.0); PLATELET COUNT (AUTO) 241 K/uL (130-430); RED BLOOD CELL COUNT(AUTO) 4.71 MIL/uL (4.2-6.2); RED CELL DISTRIBUTION WIDTH 23.3 % (9.0-15.0); WHITE BLOOD COUNT (AUTO) 5.4 K/uL (4.8-10.8)
[2022-12-16] MEDS: NORMAL SALINE 5 ML DISP.SYRIN IVF SCH ×2 (05:17→14:00)
[2022-12-16 06:01] LABS: ALANINE AMINOTRANSFERASE 4 U/L (12-78); ANION GAP 7 (5-15); ASPARTATE AMINOTRANSFERASE 13 U/L (10-37); CALCIUM 8.4 mg/dL (8.4-11.0); CARBON DIOXIDE 28 mmol/L (23-29); CHLORIDE 104 mmol/L (98-107); GLUCOSE 97 mg/dL (74-106); PHOSPHORUS 4.1 mg/dL (2.7-4.5); POTASSIUM 3.5 mmol/L (3.5-5.1); SODIUM SERUM 139 mmol/L (136-145); TOTAL BILIRUBIN 0.7 mg/dL (0.0-1.0); TOTAL PROTEIN, SERUM 5.7 g/dL (6.4-8.3); UREA NITROGEN, BLOOD 12 mg/dL (8-21)
[2022-12-16 08:00] VITALS: BP_SYST 105; PULSE 85; RESP 14; TEMP 97.6; O2SAT 94
[2022-12-16] MEDS: CARVEDILOL 25 MG TABLET (COREG) PO SCH (08:55)
[2022-12-16] MEDS: GABAPENTIN 100 MG CAPSULE PO SCH (08:56)
[2022-12-16] MEDS: SILDENAFIL CITRATE 20 MG TABLET PO SCH ×2 (08:56→15:00)
[2022-12-16] MEDS ORDERED: methIMAzole 5 MG TABLET PO SCH (09:00)
[2022-12-16] MEDS ORDERED: POTASSIUM CHLORIDE PO SCH (09:00)
[2022-12-16] MEDS ORDERED: POTASSIUM CHLORIDE 10 MEQ TAB.PRT.SR PO SCH (09:00)
[2022-12-16] MEDS ORDERED: DILTIAZEM HCL 180 MG CAP.SR.24H PO SCH (09:00)
[2022-12-16] MEDS ORDERED: CYANOCOBALAMIN 1500 MCG PO SCH (09:00)
[2022-12-16] MEDS ORDERED: CYANOCOBALAMIN (VITAMIN B-12) 1,000 MCG TABLET PO SCH (09:00)
[2022-12-16] MEDS ORDERED: CALCIUM 500 MG/TAB PO SCH (09:00)
[2022-12-16] MEDS ORDERED: MULTIVITS,CA,MINERALS/IRON/FA 1 TABLET PO SCH (09:00)
[2022-12-16] MEDS ORDERED: CALCIUM CARBONATE PO SCH (09:00)
[2022-12-16] MEDS: APIXABAN 2.5 MG TABLET PO SCH (09:01)
[2022-12-16 10:30] VITALS: O2SAT 99
[2022-12-16 15:48] VITALS: BP_SYST 105; PULSE 75; RESP 17; TEMP 98.1; O2SAT 97
== END 2022-12-16 17:10 | disposition home or self-care (01) | DRG 309 ==
LOC: SED 00:24 → STU 01:47
PROVIDERS: ADMIT Preventive Medicine Preventive Medicine/Occupational Environmental Medicine; ATTEND Preventive Medicine Preventive Medicine/Occupational Environmental Medicine
DX: I48.91 Unspecified atrial fibrillation (principal); E44.0 Moderate protein-calorie malnutrition; I50.42 Chronic combined systolic (congestive) and diastolic (congestive) heart failure; E05.90 Thyrotoxicosis, unspecified without thyrotoxic crisis or storm; E78.5 Hyperlipidemia, unspecified; D64.9 Anemia, unspecified; I11.0 Hypertensive heart disease with heart failure; I70.0 Atherosclerosis of aorta; Z68.28 Body mass index [BMI] 28.0-28.9, adult
CPT/HCPCS: 36415; 71045; 80053; 83605; 83735; 83880; 84100; 84443; 84484; 85025; 85379; 85610-TC; 85730-TC; 87040; 93005; 96374; 99285; G0378; J3490